=== PATIENT | male | born 1960 | race Caucasian/White ===

== ENCOUNTER 2018-06-26 11:14 | Day surgery (SDC) | payer BC ==
[2018-06-24 15:18] VITALS: BMI 25.7
[~2018-06-26 11:14] MED LIST: LACTATED RINGERS 1,000 ML IV SCH
[2018-06-26 12:56] VITALS: TEMP 97.7
[2018-06-26] MEDS ORDERED: LIDOCAINE 1% 20 ML VIAL (10MG/ML) FOR IV START INTRADERMA ONE (13:11)
[2018-06-26] MEDS ORDERED: PROPOFOL 10 MG/ML 20 ML VIAL IV ONE (13:37)
--- NOTE | 2018-06-26 14:00 | P.PCN ---
Date of Procedure: 06/26/18 Procedure(s) Performed: BRIEF HISTORY: Patient is a 57 year-old pleasant white male, scheduled for an elective colonoscopy as a part of value should of prior history of colon polyps his last colonoscopy was 3 years ago. PROCEDURE PERFORMED: Colonoscopy. PREOPERATIVE DIAGNOSIS: History of colon polyps IV sedation per Anesthesia. PROCEDURE: After informed consent was obtained, the patient, was brought into the endoscopy unit. IV sedation was administered by Anesthesia under continuous monitoring. Digital rectal examination was normal. Initially the Olympus CF-160 flexible video colonoscope was then inserted in the rectum, gradually advanced into the cecum without any difficulty. Careful examination was performed as the scope was gradually being withdrawn. Ileocecal valve and the appendiceal orifice were visualized and appeared normal. Prep was excellent. Mucosa of the cecum, ascending colon, transverse colon, descending colon, sigmoid colon, and rectum appeared normal. Retroflexion was performed in the rectum and no lesions were seen. The patient tolerated the procedure well. IMPRESSION: Normal-appearing colon from rectum to cecum with no evidence of colorectal neoplasia. RECOMMENDATIONS: Findings of this examination were discussed with the patient as well as his family. He was advised to have a repeat screening colonoscopy in 5 years from now because of the prior history of colon polyps..
[2018-06-26 14:08] VITALS: RESP 18
[2018-06-26 14:23] VITALS: BP 132/72; PULSE 60
== END 2018-06-26 15:00 | disposition home or self-care (01) ==
LOC: ORWHC2ENDO 11:14
PROVIDERS: ATTEND Internal Medicine Gastroenterology
DX: Z12.11 Encounter for screening for malignant neoplasm of colon (principal); I10 Essential (primary) hypertension; D60.9 Acquired pure red cell aplasia, unspecified; D61.818 Other pancytopenia; Z86.010 Personal history of colon polyps; Z79.82 Long term (current) use of aspirin; Z79.899 Other long term (current) drug therapy; Z79.1 Long term (current) use of non-steroidal anti-inflammatories (NSAID)
CPT/HCPCS: J2704; G0105; 45378

== ENCOUNTER → 2022-01-19 | Outpatient (CLI) | payer OTHER ==
--- NOTE | 2022-01-22 14:25 | MR ---
EXAMINATION TYPE: MR Prostate wo/w con DATE OF EXAM: 01/19/2022 9:22 AM COMPARISON: None. CLINICAL INDICATION:Male, 61 years old with history of R97.20 ELEVATED PROSTATE SPECIFIC ANTIGEN; TECHNIQUE: Multi-planar, multi-sequence imaging of the pelvis is performed prior to and following the uncomplicated administration of bolus intravenous gadolinium. CONTRAST: 10 cc Gadavist Interpretive Criteria: PI-RADS v2.1 SERUM PSA: 5.2 on 10/12/2021 3.9 on 09/28/2021 SURGICAL PATHOLOGY: No data available. FINDINGS: Prostatic dimensions: 5.1 x 4.2 x 4.0 cm. "Bullet" Volume:56.08 (PSA density=0.09 ng/mL/mL) CENTRAL GLAND (Central and Transition Zones/CZ+TZ): Multiple bilateral, heterogenous appearing hypertrophic stromal nodules, without suspicious lesion. ( PI-RADS 2) PERIPHERAL ZONE (PZ): Bilateral linear, indistinct wedgelike areas of low ADC, and low T2 signal, No evidence of masslike a bnormality, or localized perfusional hypervascularity, to further suggest a focus of clinically signi ficant prostate cancer. (PI-RADS 2) SEMINAL VESICLES (SV): Symmetric and unremarkable. PERIPROSTATIC TISSUES: Unremarkable. LYMPH NODES: No enlarged pelvic lymph node. REMAINING PELVIS: Bladder wall is within normal limits given distention. No abnormal free or organized intrapelvic fluid collection. No pathologic bowel dilation or mural thickening. Bilateral fat-containing inguinal hernias. OSSEOUS STRUCTURES: 9 mm low T2/low T1 region next to the pubic symphysis IMPRESSION: 1. No specific features for high-risk prostate cancer. Maximum PI-RADS score: 2. 2. Indeterminate left pubic symphysis 9 mm focus of bone marrow signal. Consider further workup with a nuclear medicine bone scan.
== END | disposition home or self-care (01) ==
LOC: RADMRIMAIN 07:52
PROVIDERS: ATTEND Urology
DX: R97.20 Elevated prostate specific antigen [PSA] (principal)
CPT/HCPCS: 72197; A9585

== ENCOUNTER → 2022-09-06 | Outpatient (CLI) | payer OTHER ==
--- NOTE | 2022-09-06 19:36 | NM ---
EXAMINATION TYPE: NM bone/joint limited DATE OF EXAM: 09/06/2022 COMPARISON: Prostate MRI 01/19/2022 CLINICAL INDICATION: Male, 61 years old with history of M86.8X8 osteomyelitis; attention left pubic s ymphysis, 9 mm uptake on prostate MRI. TECHNIQUE: After the intravenous administration of 22.7 mCi Tc 99m MDP. Images acquired 3 hours pos t injection. Multiple views of mid to lower half of the body are submitted. Additional coned-down im aging of the pelvis. Findings: The technologist notes that the patient is severely claustrophobic and only limited images could be o btained. There is scattered degenerative tracer activity at the knees and mid foot regions. Also righ t forefoot probably at the first MTP joint. No convincing abnormal focal increased activity within th e pelvis with particular attention to the pubic symphysis on either side. IMPRESSION: No convincing abnormal focal increased activity within the pelvis with particular attention to the pu bic symphysis on either side. The previously questioned MRI finding may reflect a prominent island of red marrow hyperplasia. In addition, no scintigraphic evidence for osseous metastatic disease or osteomyelitis.
== END | disposition home or self-care (01) ==
LOC: RADNMMAIN 10:04
PROVIDERS: ATTEND Family Medicine
DX: M86.8X8 Other osteomyelitis, other site (principal)
CPT/HCPCS: 78300; A9503

== ENCOUNTER → 2023-03-14 | Outpatient (CLI) | payer OTHER ==
--- NOTE | 2023-03-14 14:17 | CT ---
EXAMINATION TYPE: CT abdomen pelvis w con DATE OF EXAM: 03/14/2023 COMPARISON: None. HISTORY: RLQ pain x1 week CT DLP: 989.60 mGycm, Automated Exposure Control for Dose Reduction was Utilized. CONTRAST: CT scan of the abdomen and pelvis is performed with oral and with IV Contrast, patient injected with 100ml mL of Isovue 300. FINDINGS: LUNG BASES: No significant abnormality is appreciated. LIVER/GB: No significant abnormality is appreciated. PANCREAS: No significant abnormality is seen. SPLEEN: No significant abnormality is seen. ADRENALS: No significant abnormality is seen. KIDNEYS: No significant abnormality is seen. BOWEL: Oral contrast reaches level of the distal transverse colon. No abnormal small or large bowel d ilatation is seen. Terminal ileum appears within normal limits coronal image 49. Appendix grossly unr emarkable. PROSTATE/SEMINAL VESICLES: Mildly enlarged prostate gland consistent with BPH. Correlate clinically. Scattered tiny calcified pelvic phleboliths. LYMPH NODES: No greater than 1cm abdominal or pelvic lymph nodes are appreciated. OSSEOUS STRUCTURES: Kqrrgbic-gh-pnedda disc space narrowing with vacuum disc phenomenon at L5-S1 leve l. OTHER: Small fat-containing right inguinal hernia. IMPRESSION: No significant acute finding is seen to account for patient's clinical symptoms of right lower quadrant pain.
== END | disposition home or self-care (01) ==
LOC: RADCTMAIN 12:20
PROVIDERS: ATTEND Family Medicine
DX: R10.31 Right lower quadrant pain (principal)
CPT/HCPCS: 74177; Q9967

== ENCOUNTER → 2024-02-06 | Day surgery (SDC) | payer OTHER ==
[2024-02-04 16:21] VITALS: BMI 26.6
[~2024-02-06] MED LIST changes: -LACTATED RINGERS 1,000 ML IV SCH; +PROPOFOL 10 MG/ML 20 ML VIAL IV ONE
[2024-02-06] MEDS: IV FLUID CONTINUATION 1,000 ML IV ONE (09:44)
[2024-02-06 09:47] VITALS: TEMP 97.1
[2024-02-06] MEDS: LACTATED RINGERS 1,000 ML IV SCH (09:57)
--- NOTE | 2024-02-06 10:47 | P.PCN ---
Date of Procedure: 02/06/24 Procedure(s) Performed: BRIEF HISTORY: Patient is a 63-year-old pleasant white male scheduled for an elective colonoscopy as a part of evaluation by history of colon polyps. Last colonoscopy was 5 years ago. PROCEDURE PERFORMED: Colonoscopy with cold snare polypectomy. PREOPERATIVE DIAGNOSIS: History of colon polyps. IV sedation per Anesthesia. PROCEDURE: After informed consent was obtained, the patient, was brought into the endoscopy unit. IV sedation was administered by Anesthesia under continuous monitoring. Digital rectal examination was normal. Initially the Olympus CF-160 flexible video colonoscope was then inserted in the rectum, gradually advanced into the cecum without any difficulty. Careful examination was performed as the scope was gradually being withdrawn. Ileocecal valve and the appendiceal orifice were visualized and appeared normal. Prep was excellent. Mucosa of the cecum, ascending colon, appeared normal. The transverse colon there was a 4 mm sessile polyp removed by cold snare polypectomy. Rest of the transverse colon, descending colon, sigmoid colon, and rectum appeared normal. Retroflexion was performed in the rectum and small internal were seen. The patient tolerated the procedure well. IMPRESSION: 4 mm small transverse colon polyp status post cold snare polypectomy Small internal hemorrhoids RECOMMENDATIONS: Findings of this examination were discussed with the patient as well as his family he was advised to follow the biopsy. If the biopsy rev eals adenoma he can have repeat colonoscopy in 5 years.
[2024-02-06 11:11] VITALS: BP 113/72; PULSE 55; RESP 14
== END ==
LOC: ORWHC2ENDO 09:10
PROVIDERS: ATTEND Internal Medicine Gastroenterology
DX: K63.5 Polyp of colon (principal); K64.8 Other hemorrhoids; Z79.899 Other long term (current) drug therapy
CPT/HCPCS: 88305; 45385; J2704

== ENCOUNTER 2024-04-13 23:24 | Inpatient (IN) | payer OTHER ==
--- NOTE | 2024-04-13 23:43 | ED ---
SOB HPI - General Chief Complaint: Shortness of Breath Stated Complaint: SOB abd pain Time Seen by Provider: 04/13/24 23:37 Source: patient, RN notes reviewed, old records reviewed Mode of arrival: ambulatory Limitations: no limitations - History of Present Illness Initial Comments: This is a 63-year-old male to the ER for evaluation today. 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 no swelling no medical history takes no medications, feels very short of breath here in the ER heart rate was up when he felt he was get a pass out was short of breath going up a flight of stairs prior to arrival patient was feeling unwell yesterday as well see urgent care clinic and was told he had nothing wrong MD Complaint: shortness of breath -: days(s) Severity: moderate Severity scale (1-10): 6 Consistency: constant Improves With: oxygen Worsens With: exertion Context: recent URI, recent illness Associated Symptoms: denies other symptoms - Related Data Home Medications Medication Instructions Recorded Confirmed Multivitamin [Men's Multi-Vitamin] 1 each PO DAILY 05/16/15 02/04/24 Allergies Allergy/AdvReac Type Severity Reaction Status Date / Time No Known Allergies Allergy Verified 04/13/24 23:30 Review of Systems ROS Statement: Those systems with pertinent positive or pertinent negative responses have been documented in the HPI. ROS Other: All systems not noted in ROS Statement are negative. Past Medical History Past Medical History: No Reported History Additional Past Medical History / Comment(s): COLON POLYP History of Any Multi-Drug Resistant Organisms: None Reported Past Surgical History: No Surgical Hx Reported Additional Past Surgical History / Comment(s): COLONOSCOPY Past Anesthesia/Blood Transfusion Reactions: No Reported Reaction Past Psychological History: No Psychological Hx Reported Smoking Status: Never smoker Past Alcohol Use History: None Reported Past Drug Use History: None Reported - Past Family History Mother Family Medical History: Cancer Additional Family Medical History / Comment(s): LUNG CANCER General Exam Limitations: no limitations General appearance: alert, in no apparent distress Head exam: Present: atraumatic, normocephalic, normal inspection Eye exam: Present: normal appearance, PERRL, EOMI. Absent: scleral icterus, conjunctival injection, periorbital swelling ENT exam: Present: normal exam, mucous membranes moist Neck exam: Present: normal inspection. Absent: tenderness, meningismus, lymphadenopathy Respiratory exam: Present: normal lung sounds bilaterally. Absent: respiratory distress, wheezes, rales, rhonchi, stridor Cardiovascular Exam: Present: regular rate, normal rhythm, normal heart sounds. Absent: systolic murmur, diastolic murmur, rubs, gallop, clicks GI/Abdominal exam: Present: soft, normal bowel sounds. Absent: distended, t enderness, guarding, rebound, rigid Extremities exam: Present: normal inspection, full ROM, normal capillary refill. Absent: tenderness, pedal edema, joint swelling, calf tenderness Back exam: Present: normal inspection Neurological exam: Present: alert, oriented X3, CN II-XII intact Psychiatric exam: Present: normal affect, normal mood Skin exam: Present: warm, dry, intact, normal color. Absent: rash Course Vital Signs 04/13/24 23:26 Temperature 97.4 F L Pulse Rate 73 Respiratory 18 Rate Blood Pressure 158/91 O2 Sat by Pulse 94 L Oximetry - Reevaluation(s) Reevaluation #1: 04/14/24 00:49 Medical records reviewed Reevaluation #2: 04/14/24 01:25 Patient with no shortness of breath resting in bed Reevaluation #3: 04/14/24 01:25 patient informed of results and questions answered Reevaluation #4: Was pt. sent in by a medical professional or institution (, PA, FOOD AIDE, urgent care, hospital, or long-term...) When possible be specific @ -no Did you speak to anyone other than the patient for history (EMS, parent, family, police, friend...)? What history was obtained from this source @ -no Did you review nursing and triage notes (agree or disagree)? Why? @ -agree Are old charts reviewed (outside hosp., previous admission, EMS record, old EKG, old radiological studies, urgent care reports/EKG's, long-term records)? Report findings @ -yes Differential Diagnosis (chest pain, altered mental status, abdominal pain women, abdominal pain men, vaginal bleeding, weakness, fever, dyspnea, syncope, headache, dizziness, GI bleed, back pain, seizure, CVA, palpatations, mental health, musculoskeletal)? @ -prior EKG interpreted by me (3pts min.). @ -yes X-rays interpreted by me (1pt min.). @ -yes negative for acute disease CT interpreted by me (1pt min.). @ -no U/S interpreted by me (1pt. min.). @ -no What testing was considered but not performed or refused? (CT, X-rays, U/S, labs)? Why? @ -none What meds were considered but not given or refused? Why? @ -none Did you discuss the management of the patient with other professionals (professionals i.e. , PA, FOOD AIDE, lab, RT, psych nurse, social director, casket coverer, teacher, affirmative action officer, shoe parts caser)? Give summary @ -no Was smoking cessation discussed for >3mins.? @ -no Was critical care preformed (if so, how long)? @ -no Were there social determinants of health that impacted care today? How? (Homele ssness, low income, unemployed, alcoholism, drug addiction, transportation, low edu. Level, literacy, decrease access to med. care, residential, rehab)? @ -none Was there de-escalation of care discussed even if they declined (Discuss DNR or withdrawal of care, Hospice)? DNR status @ -no What co-morbidities impacted this encounter? (DM, HTN, Smoking, COPD, CAD, Cancer, CVA, ARF, Chemo, Hep., AIDS, mental health diagnosis, sleep apnea, morbid obesity)? @ -none Was patient admitted / discharged? Hospital course, mention meds given and route, prescriptions, significant lab abnormalities, going to OR and other pertinent info. @ - Undiagnosed new problem with uncertain prognosis? @ -no Drug Therapy requiring intensive monitoring for toxicity (Heparin, Nitro, Insulin, Cardizem)? @ -no Were any procedures done? @ -no Diagnosis/symptom? @ - Acute, or Chronic, or Acute on Chronic? @ -Acute Uncomplicated (without systemic symptoms) or Complicated (systemic symptoms)? @ -Complicated Side effects of treatment? @ -no Exacerbation, Progression, or Severe Exacerbation? @ -exacerbation Poses a threat to life or bodily function? How? (Chest pain, [place], [place], pneumonia, PE, COPD, DKA, ARF, appy, cholecystitis, CVA, Diverticulitis, Homicidal, Suicidal, threat to staff... and all critical care pts) @ -yes Reevaluation #5: Differential Dyspnea: Coronary syndrome, arrhythmia, tamponade, asthma, COPD, pulmonary embolism, pneumonia, pneumothorax, pulmonary effusion, anaphylaxis, diabetic ketoacidosis, flailed chest, pulmonary contusion, diaphragmatic rupture, anemia, neuromuscular, this is not meant to be an all-inclusive list. - Consultations Consultation #1: Spoke with Dr. Stoddard who agrees to admit this patient Medical Decision Making - Medical Decision Making 63 male to ER for evaluation of exertional dyspnea since yesterday found to have PE here in the ER and will admit for anticoagulation and PE evaluation - Lab Data Result diagrams: 04/14/24 00:20 04/14/24 00:20 Lab Results 04/14/24 04/14/24 04/14/24 Range/Units 00:20 00:20 00:20 WBC 7.2 (3.8-10.6) k/uL RBC 4.72 (4.30-5.90) m/uL Hgb 15.3 (13.0-17.5) gm/dL Hct 44.8 (39.0-53.0) % MCV 94.8 (80.0-100.0) fL MCH 32.4 (25.0-35.0) pg MCHC 34.2 (31.0-37.0) g/dL RDW 13.1 (11.5-15.5) % Plt Count 231 (150-450) k/uL MPV 7.5 Neutrophils % 77 % Lymphocytes % 13 % Monocytes % 6 % Eosinophils % 1 % Basophils % 1 % Neutrophils # 5.6 (1.3-7.7) k/uL Lymphocytes # 0.9 L (1.0-4.8) k/uL Monocytes # 0.5 (0-1.0) k/uL Eosinophils # 0.1 (0-0.7) k/uL Basophils # 0.0 (0-0.2) k/uL PT 11.4 (10.0-12.5) sec INR 1.0 (<1.2) APTT 24.3 (22.0-30.0) sec D-Dimer 3.14 H (<0.60) mg/L FEU Sodium 140 (137-145) mmol/L Potassium 4.6 (3.5-5.1) mmol/L Chloride 101 (98-107) mmol/L Carbon Dioxide 29 (22-30) mmol/L Anion Gap 10 mmol/L BUN 24 H (9-20) mg/dL Creatinine 1.01 (0.66-1.25) mg/dL Est GFR (CKD-EPI)AfAm >90 (>60 ml/min/1.73 sqM) Est GFR (CKD-EPI)NonAf 80 (>60 ml/min/1.73 sqM) Glucose 110 H (74-99) mg/dL Calcium 9.9 (8.4-10.2) mg/dL Magnesium 2.8 H (1.6-2.3) mg/dL Total Bilirubin 0.7 (0.2-1.3) mg/dL AST 30 (17-59) U/L ALT 25 (4-49) U/L Alkaline Phosphatase 59 (38-126) U/L Troponin I (0.000-0.034) ng/mL NT-Pro-B Natriuret Pep 21 pg/mL Total Protein 7.5 (6.3-8.2) g/dL Albumin 4.7 (3.5-5.0) g/dL 04/14/24 Range/Units 00:20 WBC (3.8-10.6) k/uL RBC (4.30-5.90) m/uL Hgb (13.0-17.5) gm/dL Hct (39.0-53.0) % MCV (80.0-100.0) fL MCH (25.0-35.0) pg MCHC (31.0-37.0) g/dL RDW (11.5-15.5) % Plt Count (150-450) k/uL MPV Neutrophils % % Lymphocytes % % Monocytes % % Eosinophils % % Basophils % % Neutrophils # (1.3-7.7) k/uL Lymphocytes # (1.0-4.8) k/uL Monocytes # (0-1.0) k/uL Eosinophils # (0-0.7) k/uL Basophils # (0-0.2) k/uL PT (10.0-12.5) sec INR (<1.2) APTT (22.0-30.0) sec D-Dimer (<0.60) mg/L FEU Sodium (137-145) mmol/L Potassium (3.5-5.1) mmol/L Chloride (98-107) mmol/L Carbon Dioxide (22-30) mmol/L Anion Gap mmol/L BUN (9-20) mg/dL Creatinine (0.66-1.25) mg/dL Est GFR (CKD-EPI)AfAm (>60 ml/min/1.73 sqM) Est GFR (CKD-EPI)NonAf (>60 ml/min/1.73 sqM) Glucose (74-99) mg/dL Calcium (8.4-10.2) mg/dL Magnesium (1.6-2.3) mg/dL Total Bilirubin (0.2-1.3) mg/dL AST (17-59) U/L ALT (4-49) U/L Alkaline Phosphatase (38-126) U/L Troponin I <0.012 (0.000-0.034) ng/mL NT-Pro-B Natriuret Pep pg/mL Total Protein (6.3-8.2) g/dL Albumin (3.5-5.0) g/dL - EKG Data -: EKG Interpreted by Me (EKG is sinus 61 UT 183 QRS 122 QTc 442) - Radiology Data Radiology results: report reviewed (CTA chest positive for PE CT abdomen pelvis negative for acute disease), image reviewed Critical Care Time Critical Care Time: Yes Total Critical Care Time: 31 Disposition Clinical Impression: Pulmonary embolism Disposition: ADMITTED IP TO THIS [facility] Condition: Serious Is patient prescribed a controlled substance at d/c from ED?: No Referrals: Jones Morejon DO [Primary Care Provider] - 1-2 days Time of Disposition: 01:20
[2024-04-14 00:47] LABS: Basophils % (A) 1 %; Eosinophils # (A) 0.1 k/uL (0-0.7); Eosinophils % (A) 1 %; HCT 44.8 % (39.0-53.0); HGB 15.3 gm/dL (13.0-17.5); Lymphocytes # (A) 0.9 k/uL (1.0-4.8); Lymphocytes % (A) 13 %; MCH 32.4 pg (25.0-35.0); MCHC 34.2 g/dL (31.0-37.0); MCV 94.8 fL (80.0-100.0); Mean Platelet Volume 7.5; Monocytes # (A) 0.5 k/uL (0-1.0); Monocytes % (A) 6 %; Neutrophils # (A) 5.6 k/uL (1.3-7.7); Neutrophils % (A) 77 %; Platelet Count 231 k/uL (150-450); RBC 4.72 m/uL (4.30-5.90); RDW 13.1 % (11.5-15.5); WBC 7.2 k/uL (3.8-10.6)
[2024-04-14 00:59] LABS: Partial Thromboplastin Time 24.3 sec (22.0-30.0); Prothrombin Time 11.4 sec (10.0-12.5)
--- NOTE | 2024-04-14 01:01 | XR ---
EXAMINATION TYPE: XR chest 2V DATE OF EXAM: 04/14/2024 12:48 AM COMPARISON: None CLINICAL INDICATION: Male, 63 years old with history of difficulty breathing; [facility] TECHNIQUE: XR chest 2V Frontal and lateral views of the chest. FINDINGS: Lungs/Pleura: There is no evidence of pleural effusion, focal consolidation, or pneumothorax. Pulmonary vascularity: Unremarkable. Heart/mediastinum: Cardiomediastinal silhouette is unremarkable. Musculoskeletal: No acute osseous pathology. IMPRESSION: No acute cardiopulmonary disease/process. [facility], , 04/14/2024 12:59 AM
[2024-04-14 01:04] LABS: ALT 25 U/L (4-49); AST 30 U/L (17-59); African American GFR (CKD) >90 (>60 ml/min/1.73 sqM); Albumin 4.7 g/dL (3.5-5.0); Alkaline Phosphatase 59 U/L (38-126); Anion Gap 10 mmol/L; Blood Urea Nitrogen 24 mg/dL (9-20); Calcium 9.9 mg/dL (8.4-10.2); Carbon Dioxide 29 mmol/L (22-30); Chloride 101 mmol/L (98-107); Glucose 110 mg/dL (74-99); Magnesium 2.8 mg/dL (1.6-2.3); Non-African American GFR(CKD) 80 (>60 ml/min/1.73 sqM); Potassium 4.6 mmol/L (3.5-5.1); Sodium 140 mmol/L (137-145); Total Bilirubin 0.7 mg/dL (0.2-1.3); Total Protein 7.5 g/dL (6.3-8.2)
--- NOTE | 2024-04-14 01:09 | CT ---
EXAMINATION TYPE: CT abdomen pelvis w con DATE OF EXAM: 04/14/2024 12:50 AM COMPARISON: 03/14/2023 CLINICAL INDICATION: Male, 63 years old with history of pain; Pt. c/o increased SOB- worse with activ ity- denies chest pain. 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 TECHNIQUE: Axial CT abdomen pelvis w con;Sagittal and coronal reformats were created on a separate w orkstation. Contrast used:100 mL of Isovue 370 with IV Contrast, (none if empty) Oral contrast used: with Oral Contrast (none if empty) CT DLP: 1482.1 mGycm, Automated exposure control for dose reduction was used. FINDINGS: LOWER CHEST: Unremarkable ABDOMEN LIVER: Unremarkable GALLBLADDER AND BILE DUCTS: Unremarkable. PANCREAS: Unremarkable. SPLEEN: Unremarkable. ADRENAL GLANDS: Unremarkable. KIDNEYS AND URETERS: No evidence of hydronephrosis or renal calculus. The ureters are unremarkable. PELVIS BLADDER: No evidence for wall thickening or mass given limitations of exam. REPRODUCTIVE: Prostate is enlarged in size measuring 5.6 cm in transverse dimension. ABDOMEN & PELVIS STOMACH AND BOWEL: No evidence of bowel obstruction. the appendix is normal. PERITONEUM/RETROPERITONEUM: No evidence of pneumoperitoneum or free fluid. VASCULATURE: No evidence of aortic aneurysm. MUSCULOSKELETAL: No acute osseous abnormalities LYMPH NODES: No gross evidence for lymphadenopathy. SOFT TISSUE/ABDOMINAL WALL: Fat-containing right inguinal hernia. IMPRESSION: 1. No evidence for acute abdominal process. 2. The appendix is normal. 3. No obstructive uropathy or renal contrast. 4. Prostatomegaly, correlate with serum PSA. 5. Right fat containing inguinal hernia. [facility], , 04/14/2024 1:07 AM
[2024-04-14 01:12] LABS: NT-Pro-B-Type Natriuretic Pept 21 pg/mL
[2024-04-14] MEDS: SODIUM CHLORIDE 0.9% 1,000 ML IV STA (01:13)
--- NOTE | 2024-04-14 01:14 | CT ---
EXAMINATION TYPE: CT angio chest DATE OF EXAM: 04/14/2024 12:54 AM COMPARISON: Chest radiograph from same day. CLINICAL INDICATION: Male, 63 years old with history of sob; Pt. c/o increased SOB- worse with activi ty- denies chest pain. 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 TECHNIQUE/CONTRAST: CTA scan of the thorax is performed with IV Contrast, patient injected with 100 mL of Isovue 370, MIP images are created and reviewed these are created on a separate workstation.. CT DLP: 1482.1 mGycm, Automated exposure control for dose reduction was used. FINDINGS: Lungs/Pleura: No evidence of focal consolidation, pleural effusion or pneumothorax. Airway: Large airways are patent. Heart: Size within normal limits Vasculature: Bilateral filling defects within the pulmonary arteries extending into the lobar, segmen ele and subsegmental branches. There is evidence of right heart strain RV/LV equals 45/41mm =1.09. 4 vessel. Present. Mediastinum: No gross evidence of adenopathy. Musculoskeletal: No acute osseous abnormalities Soft Tissues/lymph nodes: Unremarkable. Lower neck: No significant findings. Upper Abdomen: No significant findings. IMPRESSION: Bilateral lower lobe filling defects compatible with pulmonary emboli extending from the pulmonary ar teries into the lobar, segmental and subsegmental branches. There is evidence of right heart strain. Findings communicated to Ha Patel DO on 04/14/2024 1:[address] Ty Barillas. [facility], , 04/14/2024 1:12 AM
[2024-04-14] MEDS ORDERED: NALOXONE 0.4 MG/ML 1 ML VIAL IV PRN (01:23)
[2024-04-14] MEDS ORDERED: ONDANSETRON 4 MG/2 ML VIAL IVP PRN (01:23)
[2024-04-14] MEDS ORDERED: MORPHINE SULFATE 4 MG/ML SYRINGE IV PRN (01:23)
[2024-04-14] MEDS: HEPARIN SODIUM 1,000 UN/ML (10ML VL) IV ONE (01:53)
[2024-04-14] MEDS: HEPARIN SOD,PORK IN 0.45% NACL 25,000 UNIT in 0.45% NACL 1 250ML.BAG IV SCH (01:55)
--- NOTE | 2024-04-14 03:17 | US ---
Exam: US VENOUS BILATERAL LOWER EXTREMITIES COMPARISON: None CLINICAL INDICATION: Male, 63 years old with history of DVT; patient states slight calf cramping, no hx dvt, not on thinners. PE , Pain TECHNIQUE: The lower extremity deep venous system is examined utilizing real time linear array sonography with graded compression, color doppler sonography, and spectral doppler. 47 images VESSELS IMAGED: Common Femoral Vein Deep Femoral Vein Greater Saphenous Vein * Femoral Vein Popliteal Vein Small Saphenous Vein * Proximal Calf Veins (* superficial vessels) SIDE PERFORMED: Bilateral FINDINGS: Limitation: pt shaking legs Right Leg: appears negative for dvt, Color Doppler imaging shows patency of the vessels. Spectral waveforms are within normal limits. Left Leg: appears negative for dvt, Color Doppler imaging shows patency of the vessels. Spectral waveforms are within normal limits. Impression: No DVT.
[2024-04-14] MEDS: SODIUM CHLORIDE 0.9% 1,000 ML IV SCH (03:21)
[2024-04-14] MEDS: HEPARIN SODIUM 1,000 UN/ML (10ML VL) IV PRN (08:54)
--- NOTE | 2024-04-14 10:45 | P.CRDCN ---
History of Present Illness History of present illness: HISTORY OF PRESENT ILLNESS: This is a 63-year-old male with a past medical history significant for colon polyps. Patient does not follow with a mri tech. We have been asked to see the patient in consultation for pulmonary embolism. Patient examined at the bedside in the ER. Patient states he went to urgent care on Friday due to some abdominal issues and was told everything was fine. He reports shortness since beginning of February since returning home from [place] but he didnt think much of it. He states the SOB got worse yesterday which prompted him to come to the ER. He states he is usually active and walks 20-30,000 steps a day. Patient denies having any chest pain or pressure. He currently denies shortness of breath at the time of examination. He does report having some mild dizziness. Patient was found to have acute PE and was started on IV heparin. Patient devin es any previous history of PE or DVT. He denies any prolonged travel with the exception of returning home from [place] in February 2024. Additionally he reports that he drives to the [facility] for work 4 days a week from [place], [place]. DIAGNOSTICS: - EKG reveals sinus mechanism with nonspecific ST-T wave changes. - Chest xray negative for acute process. - Chest CTA: Bilateral lower lobe filling defects compatible with pulmonary emboli extending from the pulmonary arteries into the lobar, segmental, and subsegmental branches. There is evidence of right heart strain. - Lower extremity DVT: Negative for DVT bilaterally - Laboratory data: WBC 7.2. Hemoglobin 15.3. Platelet count 231. D-dimer 3.14. Sodium 140. Potassium 4.6. BUN 24. Creatinine 1.01. Troponin negative x 3 - Current home cardiac medications include none - No previous echocardiogram, stress test, or cardiac catheterization available in EMR for review REVIEW OF SYSTEMS: At the time of my exam: CONSTITUTIONAL: Denies fever or chills. HEENT: Denies blurred vision, vision changes, or eye pain. Denies hemoptysis CARDIOVASCULAR: Denies chest pain. Denies orthopnea. Denies PND. Denies palpitations RESPIRATORY: Denies shortness of breath. GASTROINTESTINAL: Denies abdominal pain. Denies nausea or vomiting. HEMATOLOGIC: Denies bleeding disorders. GENITOURINARY: Denies any blood in urine. SKIN: Denies pruitis. Denies rash. PHYSICAL EXAM: VITAL SIGNS: Reviewed. GENERAL: Well-developed in no acute distress. HEENT: Head is normocephalic. Pupils are equal, round. Sclerae anicteric. Mucous membranes of the mouth are moist. Neck supple. No JVD or thyromegaly LUNGS: Respirations even and unlabored. Lungs essentially clear to auscultation bilaterally. HEART: Regular rate and rhythm. S1 and S2 heard. Soft systolic murmur. ABDOMEN: Soft. Nondistended. Nontender. EXTREMITIES: Normal range of motion. No clubbing or cyanosis. Peripheral pulses intact. No lower extremity edema NEUROLOGIC: Awake and alert. Oriented x 3. ASSESSMENT: Shortness of breath Bilateral pulmonary emboli with evidence of possible right heart strain per CTA, with normal trops and normal BNP History of colon polyps PLAN: Obtain 2D echo to assess cardiac structure and function Continue IV heparin Vascular surgery is on consult Consult pulmonary for evaluation Further recommendations pending patient course Nurse practitioner note has been reviewed by physician. Signing provider agrees with the documented findings, assessment, and plan of care documented by DATA WAREHOUSE SPECIALIST as a scribe. Past Medical History Past Medical History: No Reported History Additional Past Medical History / Comment(s): COLON POLYP History of Any Multi-Drug Resistant Organisms: None Reported Past Surgical History: No Surgical Hx Reported Additional Past Surgical History / Comment(s): COLONOSCOPY Past Anesthesia/Blood Transfusion Reactions: No Reported Reaction Past Psychological History: No Psychological Hx Reported Smoking Status: Never smoker Past Alcohol Use History: None Reported Past Drug Use History: None Reported - Past Family History Mother Family Medical History: Cancer Additional Family Medical History / Comment(s): LUNG CANCER Medications and Allergies Home Medications Medication Instructions Recorded Confirmed Type No Known Home Medications 04/14/24 04/14/24 History Allergies Allergy/AdvReac Type Severity Reaction Status Date / Time No Known Allergies Allergy Verified 04/14/24 07:55 Physical Exam Vitals: Vital Signs Temp Pulse Resp BP Pulse Ox 04/14/24 04:28 98.4 F 60 18 134/85 98 04/14/24 02:01 72 19 156/99 98 04/13/24 23:26 97.4 F L 73 18 158/91 94 L Intake and Output 04/13/24 04/14/24 04/14/24 22:59 06:59 14:59 Other: Weight 90.718 kg Results 04/14/24 00:20 04/14/24 00:20 Cardiac Enzymes 04/14/24 04/14/24 04/14/24 Range/Units 00:20 00:20 02:45 AST 30 (17-59) U/L Troponin I <0.012 <0.012 (0.000-0.034) ng/mL 04/14/24 Range/Units 06:55 AST (17-59) U/L Troponin I <0.012 (0.000-0.034) ng/mL Coagulation 04/14/24 04/14/24 Range/Units 00:20 06:55 PT 11.4 (10.0-12.5) sec APTT 24.3 37.3 H (22.0-30.0) sec CBC 04/14/24 Range/Units 00:20 WBC 7.2 (3.8-10.6) k/uL RBC 4.72 (4.30-5.90) m/uL Hgb 15.3 (13.0-17.5) gm/dL Hct 44.8 (39.0-53.0) % Plt Count 231 (150-450) k/uL Comprehensive Metabolic Panel 04/14/24 Range/Units 00:20 Sodium 140 (137-145) mmol/L Potassium 4.6 (3.5-5.1) mmol/L Chloride 101 (98-107) mmol/L Carbon Dioxide 29 (22-30) mmol/L BUN 24 H (9-20) mg/dL Creatinine 1.01 (0.66-1.25) mg/dL Glucose 110 H (74-99) mg/dL Calcium 9.9 (8.4-10.2) mg/dL AST 30 (17-59) U/L ALT 25 (4-49) U/L Alkaline Phosphatase 59 (38-126) U/L Total Protein 7.5 (6.3-8.2) g/dL Albumin 4.7 (3.5-5.0) g/dL Current Medications Generic Name Dose Route Start Last Admin Trade Name Freq PRN Reason Stop Dose Admin Heparin Sodium (Porcine) 0 unit 04/14/24 01:12 Heparin Sodium 1,000 Un/Ml (10ml Vl) IV PER PROTOCOL PRN Low PTT Protocol Heparin Sodium/Sodium Chloride 250 mls @ 16.329 mls/hr 04/14/24 01:15 04/14/24 01:55 25,000 unit/ Sodium Chloride IV 18 units/kg/hr .[id number] ROBERT 16.329 mls/hr Administration Protocol 18 UNITS/KG/HR Sodium Chloride 1,000 mls @ 75 mls/hr 04/14/24 01:30 04/14/24 03:21 Saline 0.9% IV 75 mls/hr .[id number] ROBERT Administration Morphine Sulfate 4 mg 04/14/24 01:23 Morphine Sulfate 4 Mg/Ml Syringe IV Q4HR PRN Severe Pain (Scale 7 to 10) Naloxone HCl 0.2 mg 04/14/24 01:23 Naloxone 0.4 Mg/Ml 1 Ml Vial IV Q2M PRN Opioid Reversal Ondansetron HCl 4 mg 04/14/24 01:23 Ondansetron 4 Mg/2 Ml Vial IVP Q8HR PRN Nausea And Vomiting Intake and Output 04/13/24 04/14/24 04/14/24 22:59 06:59 14:59 Other: Weight 90.718 kg 04/14/24 00:20 04/14/24 00:20
--- NOTE | 2024-04-14 13:16 | CA ---
Transthoracic Echo Report Name: Gautam Ortiz Age: 63 Gender: M : 1960 Exam Date: 04/14/2024 10:49 Exam Location: [facility] Ht (in): 74 Wt (lb): 200 Ordering Physician: Leeann Machado Attending/Referring Phys: Administrative Aide Katt Fernandez RDCS Procedure CPT: Indications: bilateral PE, evaluate for right heart strain Cardiac Hx: Technical Quality: Good Contrast 1: Total Dose (mL): Contrast 2: Total Dose (mL): MEASUREMENTS (Male / Female) Normal Values 2D ECHO LV Diastolic Diameter PLAX 5.7 cm 4.2 - 5.9 / 3.9 - 5.3 cm LV Systolic Diameter PLAX 3.5 cm IVS Diastolic Thickness 1.1 cm 0.6 - 1.0 / 0.6 - 0.9 cm LVPW Diastolic Thickness 1.0 cm 0.6 - 1.0 / 0.6 - 0.9 cm LV Relative Wall Thickness 0.4 RV Internal Dim ED PLAX 4.0 cm LA Systolic Diameter LX 4.1 cm 3.0 - 4.0 / 2.7 - 3.8 cm LV Diastolic Volume MOD 4C 117.6 cm??? LV Systolic Volume MOD 4C 59.5 cm??? LV Ejection Fraction MOD 4C 49.4 % LV Cardiac Index MOD 4C 1782.3 cm???/min???m??? LV Diastolic Length 4C 9.0 cm LV Systolic Length 4C 7.7 cm LV Diastolic Volume MOD 2C 100.4 cm??? LV Systolic Volume MOD 2C 47.9 cm??? LV Ejection Fraction MOD 2C 52.3 % LV Cardiac Index MOD 2C 1609.7 cm???/min???m??? LV Diastolic Length 2C 9.2 cm LV Systolic Length 2C 7.3 cm LA Volume 56.1 cm??? 18 - 58 / 22 - 52 cm??? LA Volume Index 25.7 cm???/m??? 16 - 28 cm???/m??? M-MODE Aortic Root Diameter MM 3.8 cm AV Cusp Separation MM 2.7 cm DOPPLER MV Area PHT 4.3 cm??? Mitral E Point Velocity 65.8 cm/s Mitral A Point Velocity 70.3 cm/s Mitral E to A Ratio 0.9 MV Deceleration Time 175.6 ms TR Peak Velocity 341.5 cm/s TR Peak Gradient 46.6 mmHg Right Ventricular Systolic Press 51.6 mmHg FINDINGS Left Ventricle Left ventricular ejection fraction is estimated at 55-60 %. Left ventricular cavity size normal. Left ventricular wall thickness normal. Normal left ventricular wall motion. Right Ventricle Severe right ventricular dilatation. Moderate pulmonary hypertension. Right ventricular systolic pressure estimated at 52 mm hg. Right Atrium Normal right atrial size. No right atrial thrombus or mass seen. Left Atrium Normal left atrial size. No left atrial thrombus or mass present. Mitral Valve Structurally normal mitral valve. No mitral stenosis, regurgitation or prolapse. Aortic Valve Trileaflet aortic valve. No aortic valve stenosis or regurgitation. Tricuspid Valve Structurally normal tricuspid valve. Mild tricuspid regurgitation. Pulmonic Valve Structurally normal pulmonic valve. Trace pulmonic regurgitation. Pericardium No pericardial or pleural effusion. Aorta Mild aortic dilatation at the level of the sinuses of valsalva 38 mm CONCLUSIONS normal biventricular systolic function Moderate pulmonary hypertension. Dilated RV No significant valvular abnormalities noted No pericardial effusion Previewed by: Dr. Vidal Weathers MD (Electronically Signed) Final Date: 14 April 2024 13:16
--- NOTE | 2024-04-14 14:40 | P.GSCN ---
History of Present Illness Consult date: 04/14/24 Reason for Consult: Bilateral pulmonary embolism Requesting physician: Ha Patel History of present illness: This is a pleasant 63-year-old male who presented to the emergency department with complaints of dyspnea on exertion. He states he has had some shortness of breath that he has been noticing with climbing stairs and when he thinks back to it likely since February however has progressively gotten worse in the last few days. He came in for further evaluation and he had elevated D-dimer and underwe nt CT angiogram with reports of bilateral pulmonary embolism with right heart strain. Vascular surgery was consulted for PE with possible heart strain requiring possible intervention. Patient denies any previous history of DVT or pulmonary embolism. No recent surgeries or injuries, but states that he did drive to and from [place] in January and then home after the new year. He also has long drive from his home he here locally to [facility] daily Friday through . He denies any known clotting disorders for himself or his family. He currently states no shortness of breath, no chest pain And no lower extremity pain or swelling. He had a venous duplex that was negative for DVT bilaterally. He is currently sitting up in his bed peers without any distress, no increased respiratory effort and no labored breathing. His oxygen saturation is 98 to 99% on room air. Heart rate in the 70s and blood pressure stable. Review of Systems A 14 point review systems was completed all pertinent positives and negatives as stated in the HPI. Past Medical History Past Medical History: No Reported History Additional Past Medical History / Comment(s): COLON POLYP History of Any Multi-Drug Resistant Organisms: None Reported Past Surgical History: No Surgical Hx Reported Additional Past Surgical History / Comment(s): COLONOSCOPY Past Anesthesia/Blood Transfusion Reactions: No Reported Reaction Past Psychological History: No Psychological Hx Reported Smoking Status: Never smoker Past Alcohol Use History: None Reported Past Drug Use History: None Reported - Past Family History Mother Family Medical History: Cancer Additional Family Medical History / Comment(s): LUNG CANCER Medications and Allergies Home Medications Medication Instructions Recorded Confirmed Type No Known Home Medications 04/14/24 04/14/24 History Allergies Allergy/AdvReac Type Severity Reaction Status Date / Time No Known Allergies Allergy Verified 04/14/24 07:55 Surgical - Exam Vital Signs Temp Pulse Resp BP Pulse Ox 97.4 F L 73 18 158/91 94 L 04/13/24 23:26 04/13/24 23:26 04/13/24 23:26 04/13/24 23:26 04/13/24 23:26 General appearance: The patient is alert, oriented, appears in no acute distress. HET: Head is normocephalic and atraumatic. Pupils are equal and reactive. Neck: Supple. Heart: Regular. Lungs: Equal expansion, normal respiratory effort. Abdomen: Soft, nontender, nondistended. Extremities: Normal skin color and turgor. No lower extremity swelling. Palpable bilateral DP pulses. Neurological: No focal deficits. Strength and sensation are grossly intact. Results - Labs 04/14/24 00:20 04/14/24 00:20 Abnormal Lab Results - Last 24 Hours (Table) 04/14/24 04/14/24 04/14/24 Range/Units 00:20 00:20 00:20 Lymphocytes # 0.9 L (1.0-4.8) k/uL APTT (22.0-30.0) sec D-Dimer 3.14 H (<0.60) mg/L FEU BUN 24 H (9-20) mg/dL Glucose 110 H (74-99) mg/dL Magnesium 2.8 H (1.6-2.3) mg/dL 04/14/24 Range/Units 06:55 Lymphocytes # (1.0-4.8) k/uL APTT 37.3 H (22.0-30.0) sec D-Dimer (<0.60) mg/L FEU BUN (9-20) mg/dL Glucose (74-99) mg/dL Magnesium (1.6-2.3) mg/dL Diabetes panel 04/14/24 Range/Units 00:20 Sodium 140 (137-145) mmol/L Potassium 4.6 (3.5-5.1) mmol/L Chloride 101 (98-107) mmol/L Carbon Dioxide 29 (22-30) mmol/L BUN 24 H (9-20) mg/dL Creatinine 1.01 (0.66-1.25) mg/dL Glucose 110 H (74-99) mg/dL Calcium 9.9 (8.4-10.2) mg/dL AST 30 (17-59) U/L ALT 25 (4-49) U/L Alkaline Phosphatase 59 (38-126) U/L Total Protein 7.5 (6.3-8.2) g/dL Albumin 4.7 (3.5-5.0) g/dL Calcium panel 04/14/24 Range/Units 00:20 Calcium 9.9 (8.4-10.2) mg/dL Albumin 4.7 (3.5-5.0) g/dL Pituitary panel 04/14/24 Range/Units 00:20 Sodium 140 (137-145) mmol/L Potassium 4.6 (3.5-5.1) mmol/L Chloride 101 (98-107) mmol/L Carbon Dioxide 29 (22-30) mmol/L BUN 24 H (9-20) mg/dL Creatinine 1.01 (0.66-1.25) mg/dL Glucose 110 H (74-99) mg/dL Calcium 9.9 (8.4-10.2) mg/dL Adrenal panel 04/14/24 Range/Units 00:20 Sodium 140 (137-145) mmol/L Potassium 4.6 (3.5-5.1) mmol/L Chloride 101 (98-107) mmol/L Carbon Dioxide 29 (22-30) mmol/L BUN 24 H (9-20) mg/dL Creatinine 1.01 (0.66-1.25) mg/dL Glucose 110 H (74-99) mg/dL Calcium 9.9 (8.4-10.2) mg/dL Total Bilirubin 0.7 (0.2-1.3) mg/dL AST 30 (17-59) U/L ALT 25 (4-49) U/L Alkaline Phosphatase 59 (38-126) U/L Total Protein 7.5 (6.3-8.2) g/dL Albumin 4.7 (3.5-5.0) g/dL - Imaging Comments: Echocardiogram reports normal biventricular systolic function. Moderate pulmonary hypertension. Dilated RV. No significant valvular abnormalities noted no pericardial effusion. RVSP 51.[address] angiogram reports bilateral lower lobe filling defects compatible with pulmonary emboli extending from the pulmonary arteries into the lobar, segmental and subsegmental branches. There is evidence of right heart strain. Venous duplex negative for deep vein thrombosis bilaterally Assessment and Plan Assessment: 1. Bilateral pulmonary emboli with evidence of right heart strain 2. Dyspnea on exertion Plan: 1. Continue IV heparin infusion per protocol 2. N.p.o. after midnight 3. Echocardiogram ordered, reviewed with evidence of RV dilation, right heart strain 4. Will plan for EKOS procedure tomorrow morning. Procedure discussed with patient including risks and benefits. Patient seemingly understands and is agreeable and would like to proceed. 5. Please obtain type and screen Thank you for this consultation, we will continue to follow. The impression and plan of care has been dictated as directed. Dr. Xiong I performed a history and examination of this patient, discussed the same with the dictator. I agree with the dictator's note ,documented as a scribe. Any additional findings or plans will be noted.
--- NOTE | 2024-04-14 19:11 | P.CNPUL ---
History of Present Illness Consult date: 04/14/24 Reason for consult: pulmonary embolism History of present illness: This is a 63-year-old male patient, presenting to the Emergency Department with shortness of breath and the patient was diagnosed having bilateral pulmonary embolism. The patient noticed those symptoms approximately 24 to 48 hours ago the patient was getting progressively more short of breath. No pleurisy. No hemoptysis. No chest pain. No previous history of DVT or pulmonary embolism. 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 He drives back and forth every day Friday through . He has also taken a recent trip to [place] where he had a prolonged drive. He did complain of some pain in his right lower extremity. Nevertheless, the Doppler of the lower extremities did are essentially negative for DVT. I reviewed the CT of the chest and the patient has bilateral pulmonary embolism with some limited right heart strain. Troponins are negative. proBNP is not elevated. The patient is currently on room air oxygen with a pulse ox of 98%. No significant tachycardia. He is afebrile. No history of surgeries. No history of trauma. No history of malignancies. No personal or family history of DVT or pulmonary embolism. He is essentially healthy otherwise. Echocardiogram was ordered. Review of Systems Constitutional: Reports as per HPI Eyes: denies as per HPI, denies blurred vision, denies bulging eye, denies decreased vision, denies diplopia, denies discharge, denies dry eye, denies irritation, denies itching, denies pain, denies photophobia, denies loss of peripheral vision, denies loss of vision, denies tunnel vision/blind spots Ears, nose, mouth and throat: Reports as per HPI Breasts: absent: as per HPI, gynecomastia Cardiovascular: Reports decreased exercise tolerance Respiratory: Reports dyspnea Gastrointestinal: Reports as per HPI Genitourinary: Reports as per HPI Musculoskeletal: Reports as per HPI Integumentary: Reports as per HPI Neurological: Reports as per HPI Psychiatric: Reports as per HPI Endocrine: Reports as per HPI Hematologic/Lymphatic: Reports as per HPI Allergic/Immunologic: Reports as per HPI Past Medical History Past Medical History: No Reported History Additional Past Medical History / Comment(s): COLON POLYP History of Any Multi-Drug Resistant Organisms: None Reported Past Surgical History: No Surgical Hx Reported Additional Past Surgical History / Comment(s): COLONOSCOPY Past Anesthesia/Blood Transfusion Reactions: No Reported Reaction Past Psychological History: No Psychological Hx Reported Smoking Status: Never smoker Past Alcohol Use History: None Reported Past Drug Use History: None Reported - Past Family History Mother Family Medical History: Cancer Additional Family Medical History / Comment(s): LUNG CANCER Medications and Allergies Home Medications Medication Instructions Recorded Confirmed Type No Known Home Medications 04/14/24 04/14/24 History Allergies Allergy/AdvReac Type Severity Reaction Status Date / Time No Known Allergies Allergy Verified 04/14/24 07:55 Physical Exam Vitals: Vital Signs Temp Pulse Resp BP Pulse Ox 04/14/24 04:28 98.4 F 60 18 134/85 98 04/14/24 02:01 72 19 156/99 98 04/13/24 23:26 97.4 F L 73 18 158/91 94 L Intake and Output 04/13/24 04/14/24 04/14/24 22:59 06:59 14:59 Intake Total 114.303 Balance 114.303 Intake: Intake, IV Titration 114.303 Amount Heparin Sod,Pork in 0.45% 114.303 NaCl 25,000 unit In 0.45 % NaCl 1 250ml.bag @ 18 UNITS/KG/HR 16.329 mls/hr IV .[id number] [facility] Rx#: [id number] Other: Weight 90.718 kg The patient appeared well nourished and normally developed. Vital signs as documented. Head exam is unremarkable. No scleral icterus or corneal arcus noted. Neck is without jugular venous distension, thyromegaly, or carotid bruits. Carotid upstrokes are brisk bilaterally. Lungs are clear to auscultation and percussion. Cardiac exam reveals the PMI to be normally sized and situated. Rhythm is regula r. First and second heart sounds normal. No murmurs, rubs or gallops. Abdominal exam reveals normal bowel sounds, no masses, no organomegaly and no aortic enlargement. Extremities are nonedematous and both femoral and pedal pulses are normal. Examination of the skin revealed no evidence of significant rashes, suspicious appearing nevi or other concerning lesions. Neurologically, the patient is awake and alert and the patient does not have any focal neurological deficit. Cranial nerves are essentially intact. Results - Laboratory Findings CBC and BMP: 04/14/24 00:20 04/14/24 00:20 PT/INR, D-dimer PT 11.4 sec (10.0-12.5) 04/14/24 00:20 INR 1.0 (<1.2) 04/14/24 00:20 D-Dimer 3.14 mg/L FEU (<0.60) H 04/14/24 00:20 Abnormal lab findings: Abnormal Labs 04/14/24 04/14/24 04/14/24 00:20 00:20 00:20 Lymphocytes # 0.9 L APTT D-Dimer 3.14 H BUN 24 H Glucose 110 H Magnesium 2.8 H 04/14/24 06:55 Lymphocytes # APTT 37.3 H D-Dimer BUN Glucose Magnesium - Diagnostic Findings Chest x-ray: image reviewed CT scan - chest: image reviewed Assessment and Plan Plan: Acute bilateral pulmonary embolism, unprovoked. RV strain seen on CTA of the chest. Nevertheless, hemodynamically stable, patient is on room air oxygen with a pulse ox 98%. No sinus tachycardia. proBNP level and troponins are essentially negative and the patient is currently on IV heparin. Awaiting an echocardiogram Negative Doppler of the lower extremities Shortness of breath secondary to above Plan Continue IV heparin Patient is on room air oxygen Hemodynamically stable Echocardiogram to evaluate PA pressures Soft indication for clot thrombectomy versus intra-arterial thrombolytics. Will discuss this with vascular surgery. Will continue to follow.
--- NOTE | 2024-04-14 19:14 | P.HPIM ---
History of Present Illness H&P Date: 04/14/24 Chief Complaint: Short of breath Very pleasant 63-year-old patient, follows Dr. Morejon. In rather good health. Patient normally walks at least 20-30,000 steps a day. Does few flights of stairs daily. No really prior medical history. Patient and his drove back from [place] about 6 weeks ago[address] They did drive. Since then he noticed that he was slightly slow. But still continued to have significant amount of activity. Yesterday climbing stairs he felt more short of breath and middle night felt also bit anxious. Very unlike him. Finally decided to come in. Chest CT showed bilateral pulm embolism with some right heart strain. Has been feeling a bit tired. Denied any calf pain or leg swelling. Patient denies any family members or any proximal medical history of blood clot disorders. 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 No smoking alcohol. . Physical examination: VITAL SIGNS: 98.4, 60, 18, 134/85, 98% room air GENERAL: [BMI 25.7, sitting up chair awake comfortable EYES: [Pupils equal. Conjunctiva sherman l. HEENT: External appearance of nose and ears normal, oral cavity grossly normal. NECK: JVD not raised; masses not palpable. HEART: First and second heart sounds are normal; no edema. LUNGS: Respiratory rate normal; clear to auscultation. ABDOMEN: Soft, nontender, liver spleen not palpable, no masses palpable. PSYCH: Alert and oriented x3; mood and affect sherman l. MUSCULOSKELETAL:No Clubbing/cyanosis;muscles-grossly intact NEUROLOGICAL: Cranial nerves grossly intact; no facial asymmetry, power and sensation grossly intact. LYMPHATICS: No lymph nodes palpable in the axilla and neck INVESTIGATIONS, reviewed in the clinical context: April 14, 2024: White count 7.2 hemoglobin 15.3 platelets 231 sodium 140 po tassium 4.6 BUN 24 creatinine 1.01 Troponin I less than 0.012 proBNP 21 Venous Doppler bilateral lower extremities: Negative for DVT EKG tracing personally reviewed by me-normal sinus rhythm rate 61 CT abdomen pelvis: Prostatomegaly. Right fat-containing carinal hernia CT angio chest: Bilateral filling defects within the pulmonary arteries extending into the lobar segmental 6 subsegmental branches. Evidence of right heart strain 45/41 2D echocardiogram: EF 55 to 60%. Severe right ventricle dilatation. Moderate pulmonary hypertension. Assessment plan: -Probable acute on subacute bilateral PE. Patient drove back from [place] about 6 weeks ago. Has been feeling slightly off since then. Slightly tired. Yesterday symptoms became more progressive. More short of breath and woke up at night not feeling right. Patient had right ventricle strain on CT scan showing bilateral pulm embolism. 2D echo shows severe right ventricle dilatation and some moderate pulmonary hypertension. IV heparin Patient being seen by pulmonary, vascular surgery. 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 Questions answered. Past Medical History Past Medical History: No Reported History Additional Past Medical History / Comment(s): COLON POLYP History of Any Multi-Drug Resistant Organisms: None Reported Past Surgical History: No Surgical Hx Reported Additional Past Surgical History / Comment(s): COLONOSCOPY Past Anesthesia/Blood Transfusion Reactions: No Reported Reaction Past Psychological History: No Psychological Hx Reported Smoking Status: Never smoker Past Alcohol Use History: None Reported Past Drug Use History: None Reported - Past Family History Mother Family Medical History: Cancer Additional Family Medical History / Comment(s): LUNG CANCER Medications and Allergies Home Medications Medication Instructions Recorded Confirmed Type No Known Home Medications 04/14/24 04/14/24 History Allergies Allergy/AdvReac Type Severity Reaction Status Date / Time No Known Allergies Allergy Verified 04/14/24 07:55 Physical Exam Vitals: Vital Signs Temp Pulse Resp BP Pulse Ox 04/14/24 17:09 69 16 128/81 97 04/14/24 12:25 71 18 144/91 96 04/14/24 04:28 98.4 F 60 18 134/85 98 04/14/24 02:01 72 19 156/99 98 04/13/24 23:26 97.4 F L 73 18 158/91 94 L Intake and Output 04/14/24 04/14/24 04/14/24 06:59 14:59 22:59 Intake Total 114.303 135.697 Balance 114.303 135.697 Intake: Intake, IV Titration 114.303 135.697 Amount Heparin Sod,Pork in 0.45% 114.303 135.697 NaCl 25,000 unit In 0.45 % NaCl 1 250ml.bag @ 18 UNITS/KG/HR 16.329 mls/hr IV .[id number] [facility] Rx#: [id number] Other: Weight 90.718 kg Results CBC & Chem 7: 04/14/24 00:20 04/14/24 00:20 Labs: Abnormal Lab Results - Last 24 Hours (Table) 04/14/24 04/14/24 04/14/24 Range/Units 00:20 00:20 00:20 Lymphocytes # 0.9 L (1.0-4.8) k/uL APTT (22.0-30.0) sec D-Dimer 3.14 H (<0.60) mg/L FEU BUN 24 H (9-20) mg/dL Glucose 110 H (74-99) mg/dL Magnesium 2.8 H (1.6-2.3) mg/dL 04/14/24 04/14/24 Range/Units 06:55 14:50 Lymphocytes # (1.0-4.8) k/uL APTT 37.3 H 57.9 H (22.0-30.0) sec D-Dimer (<0.60) mg/L FEU BUN (9-20) mg/dL Glucose (74-99) mg/dL Magnesium (1.6-2.3) mg/dL
[2024-04-15] MEDS: MIDAZOLAM 2 MG/2 ML VIAL IVP ONE (07:31)
[2024-04-15] MEDS: LIDOCAINE 1% INJ 10MG/ML (20 ML MDV) SQ ONE (07:31)
[2024-04-15] MEDS: fentaNYL (PF) 50 MCG/1 ML VIAL IVP ONE (07:31)
[2024-04-15 07:42] LABS: Basophils # (A) 0.1 k/uL (0-0.2); Basophils % (A) 1 %; Eosinophils # (A) 0.2 k/uL (0-0.7); Eosinophils % (A) 3 %; HCT 44.8 % (39.0-53.0); HGB 14.4 gm/dL (13.0-17.5); Lymphocytes # (A) 1.3 k/uL (1.0-4.8); Lymphocytes % (A) 23 %; MCH 31.8 pg (25.0-35.0); MCHC 32.2 g/dL (31.0-37.0); MCV 98.8 fL (80.0-100.0); Monocytes # (A) 0.4 k/uL (0-1.0); Monocytes % (A) 7 %; Neutrophils # (A) 3.6 k/uL (1.3-7.7); Neutrophils % (A) 64 %; Platelet Count 219 k/uL (150-450); RBC 4.54 m/uL (4.30-5.90); RDW 12.8 % (11.5-15.5); WBC 5.7 k/uL (3.8-10.6)
[2024-04-15] MEDS: IOPAMIDOL-370 100ML BTL INJ ONE (07:50)
--- NOTE | 2024-04-15 08:11 | IR ---
EXAMINATION TYPE: IR TRANSIT CATHETER INFUSION THERAPY DATE OF EXAM: 04/15/2024 COMPARISON: Pre Operative Images if available both CT/MRI or plain film CLINICAL INDICATION: Male, 63 years old with history of bilateral PE. TECHNIQUE: IR TRANSIT CATHETER INFUSION THERAPY , multiple fluoroscopic images provided for procedure . DAP: 761.78 uGym2 FINDINGS: Fluoroscopic images during angiography demonstrated. IMPRESSION: 1. Report was generated for administrative purposes only. 2. Please see the operative/procedural note for further details. [facility], , 04/15/2024 8:09 AM
[2024-04-15] MEDS: SODIUM CHLORIDE 0.9% 1,000 ML IV ONE (08:17)
[2024-04-15 08:37] LABS: Glucose,Whole Blood 92 mg/dL (70-110)
[2024-04-15 08:44] LABS: ALT 21 U/L (4-49); AST 28 U/L (17-59); African American GFR (CKD) >90 (>60 ml/min/1.73 sqM); Albumin 4.2 g/dL (3.5-5.0); Alkaline Phosphatase 57 U/L (38-126); Anion Gap 8 mmol/L; Blood Urea Nitrogen 22 mg/dL (9-20); Calcium 9.5 mg/dL (8.4-10.2); Carbon Dioxide 28 mmol/L (22-30); Chloride 103 mmol/L (98-107); Glucose 85 mg/dL (74-99); Magnesium 2.3 mg/dL (1.6-2.3); Non-African American GFR(CKD) 79 (>60 ml/min/1.73 sqM); Sodium 139 mmol/L (137-145); Total Protein 6.9 g/dL (6.3-8.2)
[2024-04-15] MEDS: ALTEPLASE 6 MG in SODIUM CHLORIDE 0.9% 144 ML IV ONE (09:00)
--- NOTE | 2024-04-15 09:32 | P.OP ---
Date of Procedure: 04/15/24 Description of Procedure: preoperative diagnosis: Submassive bilateral pulmonary emboli Postoperative diagnosis: Same Procedure: #1 ultrasound-guided right common femoral vein access of central venous catheters x2 #2 bilateral selective pulmonary angiogram #3 Initiation of pulmonary pharmacal mechanical thrombolysis with EKOS #4 Moderate conscious sedation x 22 minutes with personal monitoring certified RN administration #5 right iliofemoral venogram Surgeon: Yolie Ruiz D.O. EBL: Less than 10 mL IV fluids: See records Urine output: See records Drains: None Complications: None immediately apparent Condition: Stable to ICU Operative indication and findings: Patient is a 63-year-old male with new onset shortness of breath and difficulty breathing who was found to have bilateral pulmonary emboli and workup evaluation was found to be submassive with an RVSP of 52 mmHg and right heart dilation. Due to this a discussion was had regarding going forward with angiogram and initiation of tPA thrombolysis. Risks and benefits were previously discussed including but not limited to bleeding, in fection and injury to the vessels. He seemed understood and is willing to proceed Procedure in detail: [The patient was taken to the radiology suite and placed in supine position. Bilateral groins are prepped and draped in usual sterile fashion. A preprocedure timeout was performed, all parties were in agreement. The right common femoral vein was identified and found to be compressible without any evidence of visible thrombus. The skin overlying was anesthetized 1% lidocaine plain. A multipurpose needle was used and the vein was accessed and a wire was placed. This was done again through a separate access site. 2, 6-Turkish sheaths were placed. An iliofemoral venogram was performed showing brisk wash of contrast without any thrombus. Using catheters and wires the right and left pulmonary arteries were accessed. Selective pulmonic angiograms were performed confirming positioning. An EKOS ultrasonic pharmacomechanical infusion catheter was placed and confirmed appropriate positioning within the pulmonary arteries. The catheters were hooked up to appropriate fluid infusions per protocol for submassive pulmonary emboli. The sheaths were sutured in place. Dressing was placed. The patient was transferred back to ICU in stable condition having tolerated the procedure well.
[2024-04-15 12:34] LABS: Basophils % (A) 1 %; Eosinophils # (A) 0.1 k/uL (0-0.7); Eosinophils % (A) 1 %; HCT 41.1 % (39.0-53.0); HGB 13.7 gm/dL (13.0-17.5); Lymphocytes # (A) 1.1 k/uL (1.0-4.8); Lymphocytes % (A) 18 %; MCHC 33.3 g/dL (31.0-37.0); MCV 96.2 fL (80.0-100.0); Mean Platelet Volume 8.1; Monocytes # (A) 0.4 k/uL (0-1.0); Monocytes % (A) 6 %; Neutrophils # (A) 4.4 k/uL (1.3-7.7); Neutrophils % (A) 72 %; Platelet Count 208 k/uL (150-450); RBC 4.27 m/uL (4.30-5.90); RDW 13.2 % (11.5-15.5)
--- NOTE | 2024-04-15 13:37 | P.PN ---
Subjective Progress Note Date: 04/15/24 PROGRESS NOTE The patient is a 63-year-old male who presented with symptoms of progressive dyspnea, was found to have pulmonary embolism and evidence of strain on his CT scan. He subsequently underwent an echocardiogram that showed a preserved systolic function with dilated right ventricle and moderate pulmonary hypertension with mild tricuspid regurgitation. He underwent EKOS procedure this morning. He is feeling well. He is done with his tPA infusion and he is being started on heparin. He denies any chest discomfort, dizziness or palpitations. He continues to be in sinus mechanism. Medications: IV heparin PHYSICAL EXAMINATION: Blood pressure 116/70 heart rate 60 LUNGS: Clear to auscultation HEART: Regular rate and rhythm, S1, S2. No S3. No systolic murmur ABDOMEN: Soft, nontender, no organomegaly EXTREMETIES: No edema, catheter is noted in the right femoral vein LAB: Hemoglobin 13.7, BUN 22, creatinine 1.02 IMPRESSION: 1. Acute pulmonary embolism 2. Right ventricular strain related to the embolism PLAN: 1. Initiate oral anticoagulation per protocol 2. His pulmonary embolism appears to be nonprovoked and most likely will require lifetime anticoagulation 3. Follow-up as an outpatient in regard to his right ventricular function 4. Depending on his progress further recommendations will be made Objective - Vital Signs Vital signs: Vital Signs Temp 98.5 F 04/15/24 12:00 Pulse 63 04/15/24 13:00 Resp 12 04/15/24 13:00 BP 116/70 04/15/24 13:00 Pulse Ox 95 04/15/24 13:00 FiO2 Intake & Output 04/14/24 04/15/24 04/15/24 18:59 06:59 18:59 Intake Total 250.976 667 4489.819 Output Total 0 Balance 250.123 953 3842.819 Weight 90.718 kg Intake: IV 900 Alteplase 6 mg In Sodium 150 Chloride 0.9% 144 ml @ 1 MG/HR 25 mls/hr IV .Q6H [facility] Rx#:[id number] Heparin Sod,Pork in 0.45% 15 NaCl 25,000 unit In 0.45 % NaCl 1 250ml.bag @ 2.5 mls/hr IV .Q24H [facility] Rx#: [id number] Sodium Chloride 0.9% 1, 210 000 ml @ 35 mls/hr IV . Q24H [facility] Rx#:[id number] Sodium Chloride 0.9% 1, 75 000 ml @ 75 mls/hr IV . [id number] [facility] Rx#:[id number] Intake, IV Titration 250.000 250 115.819 Amount Heparin Sod,Pork in 0.45% 250.000 250 115.819 NaCl 25,000 unit In 0.45 % NaCl 1 250ml.bag @ 18 UNITS/KG/HR 16.329 mls/hr IV .[id number] [facility] Rx#: [id number] Oral 490 Output: Urine 0 - Labs CBC & Chem 7: 04/15/24 12:12 04/15/24 07:00 Labs: Abnormal Lab Results - Last 24 Hours (Table) 04/14/24 04/15/24 04/15/24 Range/Units 14:50 07:00 12:12 RBC 4.27 L (4.30-5.90) m/uL APTT 57.9 H (22.0-30.0) sec BUN 22 H (9-20) mg/dL
[2024-04-15 14:21] LABS: Partial Thromboplastin Time 24.4 sec (22.0-30.0)
--- NOTE | 2024-04-15 16:00 | P.PN ---
Progress Note - Text Progress Note Date: 04/15/24 Chief Complaint: Short of breath Very pleasant 63-year-old patient, follows Dr. Morejon. In rather good health. Patient normally walks at least 20-30,000 steps a day. Does few flights of stairs daily. No really prior medical history. Patient and his drove back from [place] about 6 weeks ago[address] They did drive. Since then he noticed that he was slightly slow. But still continued to have significant amount of activity. Yesterday climbing stairs he felt more short of breath and middle night felt also bit anxious. Very unlike him. Finally decided to come in. Chest CT showed bilateral pulm embolism with some right heart strain. Has been feeling a bit tired. Denied any calf pain or leg swelling. Patient denies any family members or any proximal medical history of blood clot disorders. April 15: ICU. Patient today underwent pharmacomechanical thrombolysis with EKOS. tPA given. About 6 hours. Following that patient is on IV heparin drip. Laying flat in bed. at the bedside. No chest pain. No shortness of breath. Appears comfortable Active Medications Apixaban (Apixaban Initiation Dose--Vte 5 Mg Tab) 10 mg PO BID [facility]; Taper Stop: 05/15/24 20:59 Heparin Sodium (Porcine) (Heparin Sodium 1,000 Un/Ml (10ml Vl)) 0 unit IV PER PROTOCOL PRN; Protocol PRN Reason: Low PTT Last Admin: 04/14/24 08:54 Dose: 3,628.72 unit Heparin Sodium/Sodium Chloride (25,000 unit/ Sodium Chloride) 250 mls @ 16.329 mls/hr IV .[id number] [facility]; Protocol Last Admin: 04/15/24 13:21 Dose: 20 units/kg/hr, 18.144 mls/hr Sodium Chloride (Saline 0.9%) 1,000 mls @ 75 mls/hr IV .[id number] [facility] Last Admin: 04/15/24 13:23 Dose: 75 mls/hr Morphine Sulfate (Morphine Sulfate 4 Mg/Ml Syringe) 4 mg IV Q4HR PRN PRN Reason: Severe Pain (Scale 7 to 10) Naloxone HCl (Naloxone 0.4 Mg/Ml 1 Ml Vial) 0.2 mg IV Q2M PRN PRN Reason: Opioid Reversal Ondansetron HCl (Ondansetron 4 Mg/2 Ml Vial) 4 mg IVP Q8HR PRN PRN Reason: Nausea And Vomiting 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 . Physical examination: VITAL SIGNS: 98.5, 65, 12, 128 x 80, 94% GENERAL: [BMI 25.7, sitting up chair awake comfortable EYES: [Pupils equal. Conjunctiva sherman l. HEENT: External appearance of nose and ears normal, oral cavity grossly normal. NECK: JVD not raised; masses not palpable. HEART: First and second heart sounds are normal; no edema. LUNGS: Respiratory rate normal; clear to auscultation. ABDOMEN: Soft, nontender, liver spleen not palpable, no masses palpable. PSYCH: Alert and oriented x3; mood and affect sherman l. MUSCULOSKELETAL:No Clubbing/cyanosis;muscles-grossly intact INVESTIGATIONS, reviewed in the clinical context: April 23: White count 6 hemoglobin 13.7 platelets 208 sodium 139 potassium 5 BUN 22 creatinine 1.02 April 14, 2024: White count 7.2 hemoglobin 15.3 platelets 231 sodium 140 potassium 4.6 BUN 24 creatinine 1.01 Troponin I less than 0.012 proBNP 21 Venous Doppler bilateral lower extremities: Negative for DVT EKG tracing personally reviewed by me-normal sinus rhythm rate 61 CT abdomen pelvis: Prostatomegaly. Right fat-containing carinal hernia CT angio chest: Bilateral filling defects within the pulmonary arteries extending into the lobar segmental 6 subsegmental branches. Evidence of right heart strain 45/41 2D echocardiogram: EF 55 to 60%. Severe right ventricle dilatation. Moderate pulmonary hypertension. Assessment plan: -Massive acute on subacute bilateral PE. Patient drove back from [place] about 6 weeks ago. Has been feeling slightly off since then. Slightly tired. Yesterday symptoms became more progressive. More short of breath and woke up at night not feeling right. Patient had right ventricle strain on CT scan showing bilateral pulm embolism. 2D echo shows severe right ventricle dilatation and some moderate pulmonary hypertension. IV heparin Today patient underwent through EKOS with tPA. 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 Follow protocol Past Medical History Past Medical History: No Reported History Additional Past Medical History / Comment(s): COLON POLYP History of Any Multi-Drug Resistant Organisms: None Reported Past Surgical History: No Surgical Hx Reported Additional Past Surgical History / Comment(s): COLONOSCOPY Past Anesthesia/Blood Transfusion Reactions: No Reported Reaction Past Psychological History: No Psychological Hx Reported Smoking Status: Never smoker Past Alcohol Use History: None Reported Past Drug Use History: None Reported
--- NOTE | 2024-04-15 16:52 | P.PN ---
Subjective Progress Note Date: 04/15/24 This is a 63-year-old male patient, presenting to the Emergency Department with shortness of breath and the patient was diagnosed having bilateral pulmonary embolism. The patient noticed those symptoms approximately 24 to 48 hours ago the patient was getting progressively more short of breath. No pleurisy. No hemoptysis. No chest pain. No previous history of DVT or pulmonary embolism. 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 He drives back and forth every day Friday through . He has also taken a recent trip to [place] where he had a prolonged drive. He did complain of some pain in his right lower extremity. Nevertheless, the Doppler of the lower extremities did a re essentially negative for DVT. I reviewed the CT of the chest and the patient has bilateral pulmonary embolism with some limited right heart strain. Troponins are negative. proBNP is not elevated. The patient is currently on room air oxygen with a pulse ox of 98%. No significant tachycardia. He is afebrile. No history of surgeries. No history of trauma. No history of malignancies. No personal or family history of DVT or pulmonary embolism. He is essentially healthy otherwise. Echocardiogram was ordered. Chronic on 04/15/2024, the patient is being seen for a follow-up. The patient was diagnosed having a submassive pulmonary embolism. The patient was seen by vascular surgery and the patient is currently receiving intra-arterial thrombolytic therapy with EKOS system. He is on room air oxygen. No respite distress. No cough sputum production chest tightness or wheezing. Hemoglobin is stable at 13.7. The fibrinogen level is at 375. PTT levels at 24. Rest of the electrolytes are all within normal limits with a BUN of 22 and a creatinine 1.02. Following insertion of the thrombolytic catheters, the patient got transferred to the intensive care for further monitoring. Echocardiogram was also noted from yesterday and the patient has evidence of pulmonary hypertension with a right ventricular systolic pressure of 51 mmHg and RV is dilated. Based on that, decision was to proceed with intra-arterial thrombolytic therapy. Objective - Vital Signs Vital signs: Vital Signs Temp 98.4 F 04/14/24 04:28 Pulse 51 L 04/15/24 06:28 Resp 18 04/15/24 06:28 BP 125/85 04/15/24 06:28 Pulse Ox 97 04/15/24 06:28 FiO2 Intake & Output 04/14/24 04/15/24 04/15/24 18:59 06:59 18:59 Intake Total 250.000 250 450 Balance 250.000 250 450 Intake: IV 450 Intake, IV Titration 250.000 250 Amount Heparin Sod,Pork in 0.45% 250.000 250 NaCl 25,000 unit In 0.45 % NaCl 1 250ml.bag @ 18 UNITS/KG/HR 16.329 mls/hr IV .[id number] [facility] Rx#: [id number] - Exam The patient appeared well nourished and normally developed. Vital signs as documented. Head exam is unremarkable. No scleral icterus or corneal arcus noted. Neck is without jugular venous distension, thyromegaly, or carotid bruits. Carotid upstrokes are brisk bilaterally. Lungs are clear to auscultation and percussion. Cardiac exam reveals the PMI to be normally sized and situated. Rhythm is regular. First and second heart sounds normal. No murmurs, rubs or gallops. Abdominal exam reveals normal bowel sounds, no masses, no organomegaly and no aortic enlargement. Extremities are nonedematous and both femoral and pedal pulses are normal. The patient has catheters in his groin and the exit site is dry clean and intact. No evidence of any bleeding. Examination of the skin revealed no evidence of significant rashes, suspicious appearing nevi or other concerning lesions. Neurologically, the patient is awake and alert and the patient does not have any focal neurological deficit. Cranial nerves are essentially intact. - Labs CBC & Chem 7: 04/15/24 12:12 04/15/24 07:00 Labs: Abnormal Lab Results - Last 24 Hours (Table) 04/14/24 04/15/24 Range/Units 14:50 07:00 APTT 57.9 H (22.0-30.0) sec BUN 22 H (9-20) mg/dL Assessment and Plan Plan: Acute bilateral pulmonary embolism, unprovoked. RV strain seen on CTA of the chest. Nevertheless, hemodynamically stable, patient is on room air oxygen with a pulse ox 98%. No sinus tachycardia. proBNP level and troponins are esse ntially negative and the patient is currently on IV heparin. Echocardiogram showed dilatation of the RV with severe pulmonary pretension. Based on that, the patient was given EKOS therapy for submassive pulmonary embolism. Negative Doppler of the lower extremities Shortness of breath secondary to above Plan Continue intra-arterial thrombotic therapy through EKOS Patient is on room air oxygen Hemodynamically stable Echocardiogram was noted The patient will be kept in the intensive care for further monitoring. Vascular surgery is on the case. Hemodynamically stable. Oxygenation is stable. Will complete the course of treatment and transition the patient to oral anticoagulation as of tomorrow.
[2024-04-15] MEDS: Apixaban Initiation Dose--VTE 5 MG TAB PO SCH (21:03)
[2024-04-16 04:52] LABS: Basophils # (A) 0.1 k/uL (0-0.2); Basophils % (A) 1 %; Eosinophils # (A) 0.2 k/uL (0-0.7); Eosinophils % (A) 4 %; HCT 39.3 % (39.0-53.0); HGB 13.4 gm/dL (13.0-17.5); Lymphocytes # (A) 1.1 k/uL (1.0-4.8); Lymphocytes % (A) 26 %; MCH 32.9 pg (25.0-35.0); MCV 96.8 fL (80.0-100.0); Mean Platelet Volume 7.3; Monocytes # (A) 0.3 k/uL (0-1.0); Monocytes % (A) 6 %; Neutrophils # (A) 2.4 k/uL (1.3-7.7); Neutrophils % (A) 59 %; Platelet Count 182 k/uL (150-450); RBC 4.06 m/uL (4.30-5.90); RDW 13.1 % (11.5-15.5)
[2024-04-16 08:05] VITALS: TEMP 97.7
[2024-04-16] MEDS: HEPARIN SOD,PORK IN 0.45% NACL 25,000 UNIT in 0.45% NACL 1 250ML.BAG IV SCH ×2 (08:16)
[2024-04-16] MEDS: SODIUM CHLORIDE 0.9% 1,000 ML IV SCH ×2 (08:16)
[2024-04-16] MEDS: ALTEPLASE 6 MG in SODIUM CHLORIDE 0.9% 144 ML IV ONE (08:16)
--- NOTE | 2024-04-16 09:05 | P.PN ---
Subjective Progress Note Date: 04/16/24 Principal diagnosis: Bilateral PE with right heart strain Patient is seen and examined today as a follow-up. Yesterday he underwent EKOS procedure with tPA. Catheters were removed and tPA discontinued yesterday afternoon. He denies any shortness of breath or chest pain at rest or ambulating in his room. Oxygen saturation has remained 98 to 99% on room air. He denies any pain or bleeding from his access site in the right groin. He has been started on Eliquis 10 mg twice daily. Objective - Vital Signs Vital signs: Vital Signs Temp 97.7 F 04/16/24 08:04 Pulse 62 04/16/24 08:04 Resp 17 04/16/24 08:04 BP 138/77 04/16/24 08:04 Pulse Ox 99 04/16/24 08:04 FiO2 Intake & Output 04/15/24 04/16/24 04/16/24 18:59 06:59 18:59 Intake Total 2305.819 Output Total 250 500 Balance 2055.819 -500 Weight 90.718 kg Intake: IV 1200 Alteplase 6 mg In Sodium 150 Chloride 0.9% 144 ml @ 1 MG/HR 25 mls/hr IV .Q6H [facility] Rx#:[id number] Heparin Sod,Pork in 0.45% 15 NaCl 25,000 unit In 0.45 % NaCl 1 250ml.bag @ 2.5 mls/hr IV .Q24H [facility] Rx#: [id number] Sodium Chloride 0.9% 1, 210 000 ml @ 35 mls/hr IV . Q24H [facility] Rx#:[id number] Sodium Chloride 0.9% 1, 375 000 ml @ 75 mls/hr IV . [id number] [facility] Rx#:[id number] Intake, IV Titration 115.819 Amount Heparin Sod,Pork in 0.45% 115.819 NaCl 25,000 unit In 0.45 % NaCl 1 250ml.bag @ 18 UNITS/KG/HR 16.329 mls/hr IV .[id number] [facility] Rx#: [id number] Oral 990 Output: Urine 250 500 Other: Voiding Method Toilet Toilet Toilet Urinal Urinal # Voids 1 - Exam General appearance: The patient is alert, oriented, appears in no acute distress. HET: Head is normocephalic and atraumatic. Neck: Supple. Heart: Regular. Lungs: Equal expansion, normal respiratory effort. Abdomen: Soft, nontender, nondistended. Extremities: Normal skin color and turgor. Right groin access site with dressin g clean dry and intact. No palpable hematoma no active bleeding. Neurological: No focal deficits. Strength and sensation are grossly intact. - Labs CBC & Chem 7: 04/16/24 03:58 04/15/24 07:00 Labs: Abnormal Lab Results - Last 24 Hours (Table) 04/15/24 04/16/24 Range/Units 12:12 03:58 RBC 4.27 L 4.06 L (4.30-5.90) m/uL Assessment and Plan Assessment: 1. Bilateral pulmonary emboli with evidence of right heart strain status post EKOS procedure with tPA 2. Dyspnea on exertion Plan: 1. Continue Eliquis as ordered, starter pack sent to pharmacy 2. Regular diet 3. Encourage ambulation 4. Patient will follow-up with cardiology for echocardiogram and to reevaluate RV dilation 5. Follow-up with vascular surgery as needed Thank you for this consultation, patient is cleared from vascular surgery for discharge. The impression and plan of care has been dictated as directed. Dr. Gutierrez I performed a history and examination of this patient, discussed the same with the dictator. I agree with the dictator's note ,documented as a scribe. Any additional findings or plans will be noted.
[2024-04-16 11:14] VITALS: BP 125/85; PULSE 71; RESP 16
--- NOTE | 2024-04-16 14:03 | P.PN ---
Subjective Progress Note Date: 04/16/24 PROGRESS NOTE The patient is a 63-year-old male who presented with symptoms of progressive dyspnea, was found to have pulmonary embolism and evidence of strain on his CT scan. He subsequently underwent an echocardiogram that showed a preserved systolic function with dilated right ventricle and moderate pulmonary hypertension with mild tricuspid regurgitation. He underwent EKOS procedure this morning. He is feeling well. He is done with his tPA infusion and he is being started on heparin. He denies any chest discomfort, dizziness or palpitations. He continues to be in sinus mechanism. April 16: The patient is feeling well this morning, ambulating without difficulty, he denies any chest discomfort, dizziness or palpitations. He continues to be in sinus mechanism. He has started Eliquis 10 mg twice a day. He is off of IV heparin. Medications: Eliquis 10 mg twice a day PHYSICAL EXAMINATION: Blood pressure 120/70 heart rate 65 LUNGS: Clear to auscultation HEART: Regular rate and rhythm, S1, S2. No S3. No systolic murmur ABDOMEN: Soft, nontender, no organomegaly EXTREMETIES: No edema, LAB: Hemoglobin 13.4 IMPRESSION: 1. Acute pulmonary embolism 2. Right ventricular strain related to the embolism PLAN: 1. Continue Eliquis 2. Increase physical activity 3. Probable discharge home today and follow-up as an outpatient in regard to his right ventricular impairment and pulmonary hypertension Objective - Vital Signs Vital signs: Vital Signs Temp 97.7 F 04/16/24 08:04 Pulse 71 04/16/24 11:13 Resp 16 04/16/24 11:13 BP 125/85 04/16/24 11:13 Pulse Ox 98 04/16/24 11:13 FiO2 Intake & Output 04/15/24 04/16/24 04/16/24 18:59 06:59 18:59 Intake Total 2305.819 360 Output Total 250 500 Balance 2055.819 -500 360 Weight 90.718 kg Intake: IV 1200 Alteplase 6 mg In Sodium 150 Chloride 0.9% 144 ml @ 1 MG/HR 25 mls/hr IV .Q6H [facility] Rx#:[id number] Heparin Sod,Pork in 0.45% 15 NaCl 25,000 unit In 0.45 % NaCl 1 250ml.bag @ 2.5 mls/hr IV .Q24H [facility] Rx#: [id number] Sodium Chloride 0.9% 1, 210 000 ml @ 35 mls/hr IV . Q24H [facility] Rx#:[id number] Sodium Chloride 0.9% 1, 375 000 ml @ 75 mls/hr IV . [id number] [facility] Rx#:[id number] Intake, IV Titration 115.819 Amount Heparin Sod,Pork in 0.45% 115.819 NaCl 25,000 unit In 0.45 % NaCl 1 250ml.bag @ 18 UNITS/KG/HR 16.329 mls/hr IV .[id number] [facility] Rx#: [id number] Oral 990 360 Output: Urine 250 500 Other: Voiding Method Toilet Toilet Toilet Urinal Urinal # Voids 1 - Labs CBC & Chem 7: 04/16/24 03:58 04/15/24 07:00 Labs: Abnormal Lab Results - Last 24 Hours (Table) 04/16/24 Range/Units 03:58 RBC 4.06 L (4.30-5.90) m/uL
--- NOTE | 2024-04-16 14:10 | P.DS ---
Providers Date of admission: 04/14/24 01:23 Expected date of discharge: 04/16/24 Attending physician: Jasper Stoddard Consults: 04/14/24 01:23 Consult Physician Routine Consulting Provider: Rod Gutierrez Consult Reason/Comments: PE Do you want consulting provider notified?: Yes Consult Physician Routine Consulting Provider: Daysi Dacosta Consult Reason/Comments: pe Do you want consulting provider notified?: Yes 04/14/24 07:56 Consult Physician Routine Consulting Provider: Kalpana Ventura Consult Reason/Comments: PE Do you want consulting provider notified?: Yes Primary care physician: [facility] Course: Chief Complaint: Short of breath Very pleasant 63-year-old patient, follows Dr. Morejon. In rather good health. Patient normally walks at least 20-30,000 steps a day. Does few flights of stairs daily. No really prior medical history. Patient and his drove back from [place] about 6 [address] ago[address] drive. Since then he noticed that he was slightly slow. But still continued to have significant amount of activity. Yesterday climbing stairs he felt more short of breath and middle night felt also bit anxious. Very unlike him. Finally decided to come in. Chest CT showed bilateral pulm embolism with some right heart strain. Has been feeling a bit tired. Denied any calf pain or leg swell ing. Patient denies any family members or any proximal medical history of blood clot disorders. April 15: ICU. Patient today underwent pharmacomechanical thrombolysis with EKOS. tPA given. About 6 hours. Following that patient is on IV heparin drip. Laying flat in bed. at the bedside. No chest pain. No shortness of breath. Appears comfortable April 16: Patient on medical floor. Up and about. No chest pain no short of breath no dizziness. Care was discussed with patient . Questions answered. Will also have the patient follow-up with hematology just to look for any other factors that may have contributed to his pulm embolism. Patient also follow-up with pulmonary. Has been ambulating. 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 No smoking alcohol. . Physical examination: VITAL SIGNS: 97.7, 71, 16, 03/20/1984, 98% room air GENERAL: [BMI 25.7, comfort Tres EYES: [Pupils equal. Conjunctiva sherman l. HEENT: External appearance of nose and ears normal, oral cavity grossly normal. NECK: JVD not raised; masses not palpable. HEART: First and second heart sounds are normal; no edema. LUNGS: Respiratory rate normal; clear to auscultation. ABDOMEN: Soft, nontender, liver spleen not palpable, no masses palpable. PSYCH: Alert and oriented x3; mood and affect sherman l. MUSCULOSKELETAL:No Clubbing/cyanosis;muscles-grossly intact INVESTIGATIONS, reviewed in the clinical context: April 16: White count 4 hemoglobin 13.4 platelets 182 April 15: White count 6 hemoglobin 13.7 platelets 208 sodium 139 potassium 5 BUN 22 creatinine 1.02 April 14, 2024: White count 7.2 hemoglobin 15.3 platelets 231 sodium 140 potassium 4.6 BUN 24 creatinine 1.01 Troponin I less than 0.012 proBNP 21 Venous Doppler bilateral lower extremities: Negative for DVT EKG tracing personally reviewed by me-normal sinus rhythm rate 61 CT abdomen pelvis: Prostatomegaly. Right fat-containing carinal hernia CT angio chest: Bilateral filling defects within the pulmonary arteries extending into the lobar segmental 6 subsegmental branches. Evidence of right heart strain 45/41 2D echocardiogram: EF 55 to 60%. Severe right ventricle dilatation. Moderate pulmonary hypertension. Assessment plan: -Massive acute on subacute bilateral PE. Patient drove back from [place] about 6 weeks ago. Has been feeling slightly off since then. Slightly tired. Yesterday symptoms became more progressive. More short of breath and woke up at night not feeling right. Patient had right ventricle strain on CT scan showing bilateral pulm embolism. 2D echo shows severe right ventricle dilatation and some moderate pulmonary hypertension. IV heparin April 15 t underwent through EKOS with tPA. 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 Dispo patient: Home Past Medical History Past Medical History: No Reported History Additional Past Medical History / Comment(s): COLON POLYP History of Any Multi-Drug Resistant Organisms: None Reported Past Surgical History: No Surgical Hx Reported Additional Past Surgical History / Comment(s): COLONOSCOPY Past Anesthesia/Blood Transfusion Reactions: No Reported Reaction Past Psychological History: No Psychological Hx Reported Smoking Status: Never smoker Past Alcohol Use History: None Reported Past Drug Use History: None Reported Plan - Discharge Summary Discharge Rx Participant: Yes New Discharge Prescriptions: New Apixaban [Eliquis Starter Pack (for VTE)] 5 - 10 mg PO DIRECTED 30 Days #1 each Discharge Medication List Apixaban [Eliquis Starter Pack (for VTE)] 5 - 10 mg PO DIRECTED 30 Days #1 each 04/15/24 [Rx] Follow up Appointment(s)/Referral(s): Hollis Fortune [STAFF PHYSICIAN] - 1 Week (PE ) Daysi Dacosta MD [STAFF PHYSICIAN] - 04/21/24 2:15 pm Jones Morejon DO [Primary Care Provider] - 1-2 days (Office will call you with a hospital follow up apt. ) Julia Ramirez,Yolie Ruiz DO [STAFF PHYSICIAN] - As Needed Patient Instructions/Handouts: Apixaban (By mouth), Pulmonary Embolism (DC) Activity/Diet/Wound Care/Special Instructions: pt to apple picking supervisor eliquis from [facility] at time of d/c. Discharge Disposition: HOME SELF-CARE
== END 2024-04-16 11:49 | disposition home or self-care (01) | DRG 175 ==
LOC: EC 23:24 → 3SCARD 04-14 01:23 → 2SICU 04-15 07:54 → 3SCARD 04-16 08:01
PROVIDERS: ADMIT Hospitalist; ATTEND Hospitalist
PROC: B51F1ZZ Fluoroscopy of Right Pelvic (Iliac) Veins using Low Osmolar Contrast (ICD-10-PCS; 2024-04-15)
PROC: B31T1ZZ Fluoroscopy of Left Pulmonary Artery using Low Osmolar Contrast (ICD-10-PCS; 2024-04-15)
PROC: B31S1ZZ Fluoroscopy of Right Pulmonary Artery using Low Osmolar Contrast (ICD-10-PCS; 2024-04-15)
PROC: 3E03317 Introduction of Other Thrombolytic into Peripheral Vein, Percutaneous Approach (ICD-10-PCS; principal; 2024-04-15 10:30)
PROC: B54BZZA Ultrasonography of Right Lower Extremity Veins, Guidance (ICD-10-PCS; 2024-04-15 10:30)
PROC: B51B1ZZ Fluoroscopy of Right Lower Extremity Veins using Low Osmolar Contrast (ICD-10-PCS; 2024-04-15 10:30)
DX: I26.09 Other pulmonary embolism with acute cor pulmonale (principal); I27.20 Pulmonary hypertension, unspecified; I07.1 Rheumatic tricuspid insufficiency; Z86.0100 Personal history of colon polyps, unspecified; Z86.711 Personal history of pulmonary embolism
CPT/HCPCS: 36415; 37211; 71046; 71275; 74177; 75743; 76937; 80053; 83735; 83880; 84100; 84484; 85025; 85379; 85384; 85610; 85730; 86850; 86900; 86901; 93005; 93306; 93970; 96361; 96365; 96366; 96375; 99291

== ENCOUNTER 2024-07-02 23:26 | Emergency (ER) | payer OTHER ==
[2024-07-02 23:29] VITALS: RESP 18
--- NOTE | 2024-07-02 23:39 | ED ---
General Adult HPI - General Chief complaint: Extremity Problem,Nontraumatic Stated complaint: R Leg Pain Time Seen by Provider: 07/02/24 23:32 Source: patient, RN notes reviewed Mode of arrival: ambulatory Limitations: no limitations - History of Present Illness Initial comments: 63-year-old male with a history of DVT and PE on Eliquis presents emergency d epartment for complaints of right thigh pain is concerned about a DVT. Patient states that he had a dental procedure completed earlier today with held his Eliquis for the past 2 days and started taking again this evening. He states that the pain of his right upper thigh started this morning and is worsened throughout the day. He denies chest pain, difficulty breathing, heart palpitations, dyspnea on exertion. - Related Data Previous Rx's Medication Instructions Recorded Apixaban [Eliquis Starter Pack 5 - 10 mg PO DIRECTED 30 Days 04/15/24 (for VTE)] #1 each Allergies Allergy/AdvReac Type Severity Reaction Status Date / Time No Known Allergies Allergy Verified 07/02/24 23:29 Review of Systems ROS Statement: Those systems with pertinent positive or pertinent negative responses have been documented in the HPI. ROS Other: All systems not noted in ROS Statement are negative. Past Medical History Past Medical History: No Reported History Additional Past Medical History / Comment(s): COLON POLYP History of Any Multi-Drug Resistant Organisms: None Reported Past Surgical History: No Surgical Hx Reported Additional Past Surgical History / Comment(s): COLONOSCOPY Past Anesthesia/Blood Transfusion Reactions: No Reported Reaction Past Psychological History: No Psychological Hx Reported Smoking Status: Never smoker Past Alcohol Use History: None Reported Past Drug Use History: None Reported - Past Family History Mother Family Medical History: Cancer Additional Family Medical History / Comment(s): LUNG CANCER General Exam Limitations: no limitations General appearance: alert, in no apparent distress ENT exam: Present: normal exam, mucous membranes moist Neck exam: Present: normal inspection. Absent: tenderness, meningismus, lymphadenopathy Respiratory exam: Present: normal lung sounds bilaterally. Absent: respiratory distress, wheezes, rales, rhonchi, stridor Cardiovascular Exam: Present: regular rate, normal rhythm, normal heart sounds. Absent: systolic murmur, diastolic murmur, rubs, gallop, clicks GI/Abdominal exam: Present: soft, normal bowel sounds. Absent: distended, tenderness, guarding, rebound, rigid Right Upper Leg exam: Present: tenderness (posterior medial thigh). Absent: swelling, ecchymosis, deformity Neurovascular tendon exam: Present: no vascular compromise. Absent: pulse deficit, abnormal cap refill, motor deficit, sensory deficit, extremity cold to touch Gait: observed and normal Back exam: Present: normal inspection Skin exam: Present: warm, dry, intact, normal color. Absent: rash Course Vital Signs 07/02/24 07/03/24 23:27 02:03 Temperature 97.8 F 98.4 F Pulse Rate 86 76 Respiratory 18 18 Rate Blood Pressure 151/95 117/84 O2 Sat by Pulse 98 98 Oximetry Medical Decision Making - Medical Decision Making Was pt. sent in by a medical professional or institution (, PA, ARTIST'S REPRESENTATIVE, urgent care, hospital, or senior living...) When possible be specific @ -No Did you speak to anyone other than the patient for history (EMS, parent, family, police, friend...)? What history was obtained from this source @ -No Did you review nursing and triage notes (agree or disagree)? Why? @ -I reviewed and agree with nursing and triage notes Were old charts reviewed (outside hosp., previous admission, EMS record, old EKG, old radiological studies, urgent care reports/EKG's, senior living records)? Report findings @ -I reviewed patient's emergency department visit note from 04/13/2024 where he presented for shortness of breath and dyspnea on exertion my son had bilateral lower extremity PEs and was admitted and underwent pulmonary angiogram with mechanical thrombolysis with EKOS on 04/15/2024. Differential Diagnosis (chest pain, altered mental status, abdominal pain women, abdominal pain men, vaginal bleeding, weakness, fever, dyspnea, syncope, headache, dizziness, GI bleed, back pain, seizure, CVA, palpatations, mental health, musculoskeletal)? @ -Differential Musculoskeletal Muscular strain, contusion, ligament sprain, fracture, arthritis, septic arthritis, bursitis, cellulitis, muscle spasm, nerve compression, DVT, arterial occlusion, herpes zoster, electrolyte abnormality, tumor.... This is not meant to be in all inclusive list EKG interpreted by me (3pts min.). @ -None X-rays interpreted by me (1pt min.). @ -None done CT interpreted by me (1pt min.). @ -None done U/S interpreted by me (1pt. min.). @ -Ultrasound imaging of the right lower extremity reveals no evidence of DVT. What testing was considered but not performed or refused? (CT, X-rays, U/S, labs)? Why? @ -None What meds were considered but not given or refused? Why? @ -None Did you discuss the management of the patient with other professionals (professionals i.e. Dr., PA, ARTIST'S REPRESENTATIVE, lab, RT, psych nurse, social science teacher, social service worker, teacher, global chief creative officer, watch caser)? Give summary @ -No Was smoking cessation discussed for >3mins.? @ -No Was critical care preformed (if so, how long)? @ -No Were there social determinants of health that impacted care today? How? (Homeles sness, low income, unemployed, alcoholism, drug addiction, transportation, low edu. Level, literacy, decrease access to med. care, detention, rehab)? @ -No Was there de-escalation of care discussed even if they declined (Discuss DNR or withdrawal of care, Hospice)? DNR status @ -No What co-morbidities impacted this encounter? (DM, HTN, Smoking, COPD, CAD, Cancer, CVA, ARF, Chemo, Hep., AIDS, mental health diagnosis, sleep apnea, morbid obesity)? @ -None Was patient admitted / discharged? Hospital course, mention meds given and route, prescriptions, significant lab abnormalities, going to OR and other pertinent info. @ -Discharge. 63-year male present emergency room with right posterior thigh discomfort. Physical exam of overlying area of concern no evidence of erythema. Extremity is warm to the touch with no duskiness and strong 2+ pedal pulses palpated. Ultrasound is negative for evidence DVT. Patient stable for discharge. Case discussed with Dr. Abreu Undiagnosed new problem with uncertain prognosis? @ -No Drug Therapy requiring intensive monitoring for toxicity (Heparin, Nitro, Insulin, Cardizem)? @ -No Were any procedures done? @ -No Diagnosis/symptom? @ -leg pain Acute, or Chronic, or Acute on Chronic? @ -acute Uncomplicated (without systemic symptoms) or Complicated (systemic symptoms)? @ -uncomplicated Side effects of treatment? @ -No Exacerbation, Progression, or Severe Exacerbation? @ -No Poses a threat to life or bodily function? How? (Chest pain, [place], [place], pneumonia, PE, COPD, DKA, ARF, appy, cholecystitis, CVA, Diverticulitis, Homicidal, S uicidal, threat to staff... and all critical care pts) @ -No Disposition Clinical Impression: Strain of posterior muscle of right thigh Disposition: HOME SELF-CARE Condition: Stable Instructions (If sedation given, give patient instructions): Muscle Strain (DC) Additional Instructions: Please return to the Emergency Department if symptoms worsen or any other concerns. Is patient prescribed a controlled substance at d/c from ED?: No Referrals: Jones Morejon DO [Primary Care Provider] - 1-2 days Time of Disposition: 01:55
--- NOTE | 2024-07-03 01:47 | US ---
EXAM: US Duplex Right Lower Extremity Veins CLINICAL HISTORY: ITS.REASON US Reason: pain in thigh, hx of PE (on eliquis) TECHNIQUE: Real-time duplex ultrasound scan of the right lower extremity veins integrating B-mode two-dimensional vascular structure, Doppler spectral analysis, color flow Doppler imaging and compression. COMPARISON: No previous studies. FINDINGS: Deep veins: Imaging of the right lower extremity deep venous system revealed no deep venous thrombosis including the right common femoral vein, right superficial femoral vein, the right popliteal vein, and the proximal calf veins. Superficial veins: Unremarkable. No thrombus in the visualized great saphenous vein. Soft tissues: No acute findings. No Samuels's cyst. Other findings: Distal calf veins were not assessed. IMPRESSION: 1. Limited evaluation of the calf veins. 2. No deep venous thrombosis of the visualized right lower extremity deep venous system.
[2024-07-03 02:05] VITALS: TEMP 98.4
[2024-07-03 02:08] VITALS: BP 117/84; PULSE 76
== END 2024-07-03 02:03 | disposition home or self-care (01) ==
LOC: EC 23:26
DX: S76.311A Strain of muscle, fascia and tendon of the posterior muscle group at thigh level, right thigh, initial encounter (principal); X58.XXXA Exposure to other specified factors, initial encounter
CPT/HCPCS: 99284